=== PATIENT | male | born 1965 | race Caucasian/White ===

== ENCOUNTER 2025-03-09 10:21 | Inpatient (IN) | payer MEDICARE ==
[~2025-03-09] VITALS: Ht 180.3 cm; Wt 120.8 kg
[2025-03-09] VITALS (8 sets, daily range): BP systolic 92; BP diastolic 49; PULSE 75–121; RESP 20–56; TEMP 101.4; O2SAT 86–96
[2025-03-09] MEDS ORDERED: 0.9% SODIUM CHLORIDE 10 ML SYRINGE IVP PRN (10:30)
[2025-03-09] MEDS ORDERED: LORazepam 2 MG/ML VIAL ONE ×2 (10:35→10:39)
[2025-03-09] MEDS ORDERED: ETOMIDATE 2 MG/ML 10 ML VIAL ONE (10:37)
[2025-03-09] MEDS ORDERED: ROCURONIUM BROMIDE 10 MG/ML 5 ML VIAL ONE (10:38)
[2025-03-09] MEDS: LevETIRAcetam 2,000 MG in DEXTROSE 5%-WATER 100 ML IV ONE (11:00)
[2025-03-09 11:05] LABS: PLATELET COUNT (AUTO) 284 K/uL (150-450); RED BLOOD CELL COUNT(AUTO) 5.76 MIL/uL (4.50-5.90); RED CELL DISTRIBUTION WIDTH 15.6 % (11.5-14.5); WHITE BLOOD COUNT (AUTO) 28.9 K/uL (4.5-11.0)
[2025-03-09 11:09] LABS: CALCIUM, TOTAL 8.5 mg/dL (8.8-10.5); CREATININE 1.21 mg/dL (0.60-1.30); GLOMERULAR FILTR. RATE CALC > 60 mL/min (>60); GLUCOSE,RANDOM 288 mg/dL (70-110); SODIUM SERUM 142 mmol/L (136-145); UREA NITROGEN, BLOOD 12 mg/dL (7-18)
[2025-03-09] MEDS: SODIUM CHLORIDE 0.9% 1,950 ML IV ONE (11:10)
[2025-03-09 11:18] LABS: TROPONIN I-HIGH SENSITIVITY 54 ng/L (<76)
[2025-03-09] MEDS ORDERED: VECURONIUM BROMIDE 10 MG/VIAL ONE (11:27)
[2025-03-09 11:28] LABS: BAND NEUTROPHILS % (MANUAL) 6 % (0-5); EOSINOPHILS % (MANUAL) 1 % (1-6); LYMPHOCYTES % (MANUAL) 26 % (22-44); METAMYELOCYTES % 3 % (0-0); MONOCYTES % (MANUAL) 3 % (2-9); SEGMENTED NEUTROPHILS % 61 % (40-70)
[2025-03-09 11:33] LABS: ASPARTATE AMINOTRANSFERASE 33.0 U/L (15-37); TOTAL PROTEIN, SERUM 7.8 g/dL (6.4-8.2)
[2025-03-09] MEDS ORDERED: RIFA300C63 PO (11:35)
[2025-03-09] MEDS ORDERED: PHEN50TA13 PO ×2 (11:35)
[2025-03-09] MEDS ORDERED: PROPOFOL 1000 MG/ISO-OSM 100 ML ONE (11:37)
[2025-03-09] MEDS: PROPOFOL 1000 MG/ISO-OSM 100 ML IV PRN (11:50)
[2025-03-09] MEDS: VECURONIUM BROMIDE 10 MG/VIAL IVP ONE ×2 (11:51→15:24)
[2025-03-09 12:01] LABS: LACTIC ACID 17.4 mmol/L (0.4-2.0)
[2025-03-09] MEDS: PIPERACILLIN SODIUM/TAZOBACTAM 4.5 GM in DEXTROSE 5%-WATER 100 ML IV ONE (12:01)
[2025-03-09] MEDS: FentaNYL CIT 1000MCG/0.9% NACL 100 ML IV PRN (12:21)
[2025-03-09] MEDS: NOREPINEPHRINE 8 MG/0.9 % NACL 250 ML IV PRN (12:44)
[2025-03-09 12:52] LABS: FRACTIONATED INSPIRED OXYGEN 100.0 % (21-100.0); SOURCE, BLOOD GAS ARTERIAL; TEMPERATURE, FAHRENHEIT, BG 98.0 FAHREN (96.0-98.6)
[2025-03-09 12:55] LABS: ABG BASE EXCESS -5.7 mmol/L (-2.0-3.0); ABG CARBOXYHEMOGLOBIN 1.0 % (0.5-1.5); ABG HCO3 19.5 mmol/L (21.0-28.0); ABG METHEMOGLOBIN 0.3 % (0.0-1.5); ABG OXYGEN CONTENT 18.7 mL/dL (15.0-23.0); ABG OXYGEN SATURATION 86.2 % (94.0-98.0); ABG OXYHEMOGLOBIN 85.1 % (94.0-98.0); ABG PCO2 46 mmHg (32.0-48.0); ABG PH 7.282 (7.350-7.450); ABG TOTAL HEMOGLOBIN 15.7 G/dL (13.5-17.5)
[2025-03-09 12:57] LABS: ALLEN TEST, BLOOD GAS Positive; O2 DEVICE,BLOOD GAS VENTILATOR (ROOM AIR); PATIENT RATE, BG 22.0 min.; PEEP,BG 7 cm H2O; PO2, ARTERIAL BG 54.1 mmHg (83.0-108.0); SET RATE, BG 20.0 min.; SITE, BLOOD GAS LFT RADIAL; VT, ABG 480 ml
[2025-03-09] MEDS: IPRATROPIUM BROMIDE 0.5 MG/2.5 ML NEB SOLUTION NEB ONE (13:01)
[2025-03-09] MEDS: ALBUTEROL SULFATE 2.5 MG/0.5 ML 5 ML NEB SOLUTION NEB ONE (13:02)
[2025-03-09] MEDS ORDERED: SODIUM CHLORIDE 0.9% 500 ML IV ONE (14:36)
[2025-03-09] MEDS ORDERED: DEXTROSE 50%-WATER 25 GM/50 ML SYRINGE IVP PRN (14:45)
[2025-03-09] MEDS ORDERED: ONDANSETRON HCL 4 MG/2 ML VIAL IVP PRN (14:45)
[2025-03-09] MEDS ORDERED: SODIUM CHLORIDE 0.9% 1,000 ML IV ONE (14:45)
[2025-03-09 15:12] LABS: TROPONIN I-HIGH SENSITIVITY 377 ng/L (<76)
[2025-03-09 15:18] LABS: ABG BASE EXCESS -5.9 mmol/L (-2.0-3.0); ABG CARBOXYHEMOGLOBIN 0.0 % (0.5-1.5); ABG HCO3 18.9 mmol/L (21.0-28.0); ABG METHEMOGLOBIN 0.3 % (0.0-1.5); ABG OXYGEN CONTENT 21.6 mL/dL (15.0-23.0); ABG OXYHEMOGLOBIN 84.3 % (94.0-98.0); ABG PCO2 52 mmHg (32.0-48.0); FRACTIONATED INSPIRED OXYGEN 100.0 % (21-100.0); SOURCE, BLOOD GAS ARTERIAL; TEMPERATURE, FAHRENHEIT, BG 98.2 FAHREN (96.0-98.6)
[2025-03-09 15:24] LABS: ABG OXYGEN SATURATION 84.6 % (94.0-98.0); ABG PH 7.237 (7.350-7.450); ABG TOTAL HEMOGLOBIN 18.3 G/dL (13.5-17.5); PO2, ARTERIAL BG 53.8 mmHg (83.0-108.0); SITE, BLOOD GAS ARTERIAL LINE
[2025-03-09 15:25] LABS: ABG A-A DIFF O2 607.8 mmHg (10-20.0); O2 DEVICE,BLOOD GAS VENTILATOR (ROOM AIR); SET RATE, BG 20.0 min.; VT, ABG 480 ml
[2025-03-09 15:29] LABS: PATIENT RATE, BG 20.0 min.; SPONTANEOUS VT, BG 490 ml
[2025-03-09 15:30] LABS: PEEP,BG 10 cm H2O
[2025-03-09] MEDS: SODIUM CHLORIDE 0.9% 1,000 ML IV SCH (15:31)
[2025-03-09] MEDS: MIDAZOLAM HCL 100 MG in SODIUM CHLORIDE 0.9% 180 ML IV PRN (16:17)
[2025-03-09 17:11] LABS: ABG BASE EXCESS -5.1 mmol/L (-2.0-3.0); ABG CARBOXYHEMOGLOBIN 0.3 % (0.5-1.5); ABG HCO3 20.0 mmol/L (21.0-28.0); ABG METHEMOGLOBIN 0.9 % (0.0-1.5); ABG OXYGEN CONTENT 21.5 mL/dL (15.0-23.0); ABG OXYGEN SATURATION 88.6 % (94.0-98.0); ABG OXYHEMOGLOBIN 87.5 % (94.0-98.0); ABG PCO2 48 mmHg (32.0-48.0); ABG PH 7.276 (7.350-7.450); ABG TOTAL HEMOGLOBIN 17.5 G/dL (13.5-17.5); FRACTIONATED INSPIRED OXYGEN 100.0 % (21-100.0); O2 DEVICE,BLOOD GAS VENTILATOR (ROOM AIR); PATIENT RATE, BG 24.0 min.; PEEP,BG 12 cm H2O; PO2, ARTERIAL BG 58.6 mmHg (83.0-108.0); SET RATE, BG 24.0 min.; SITE, BLOOD GAS ARTERIAL LINE; SOURCE, BLOOD GAS ARTERIAL; SPONTANEOUS VT, BG 588 ml; TEMPERATURE, FAHRENHEIT, BG 100.3 FAHREN (96.0-98.6); VT, ABG 480 ml
[2025-03-09] MEDS: HEPARIN SODIUM,PORCINE 5,000 UNITS/ML VIAL SQ SCH (18:07)
[2025-03-09] MEDS: ACETAMINOPHEN 325 MG TABLET PO PRN (18:08)
[2025-03-09] MEDS ORDERED: VASOPRESSIN 40 UNITS in DEXTROSE 5%-WATER 98 ML IV PRN (22:00)
[2025-03-09] MEDS ORDERED: PHENYLEPHRINE 200 MG/D5%-WATER 250 ML IV PRN (22:00)
[2025-03-09 22:37] LABS: APPEARANCE,URINE HAZY (CLEAR); GLUCOSE, URINE (UA) TRACE mg/dL (NEGATIVE); LEUKOCYTE ESTERASE ,URINE TRACE (NEGATIVE); NITRATE,URINE NEGATIVE (NEGATIVE); OCCULT BLOOD,URINE MODERATE (NEGATIVE); SPECIFIC GRAVITIY, URINE 1.015 (1.003-1.030)
[2025-03-09 22:40] LABS: ALCOHOL, URINE DRUG SCREEN NEGATIVE (NEGATIVE); AMPHET/METH SCREEN,URINE NEGATIVE (NEGATIVE); BARBITURATE SCREEN, URINE NEGATIVE (NEGATIVE); CANNABINOID SCREEN,URINE NEGATIVE (NEGATIVE); COCAINE SCREEN,URINE NEGATIVE (NEGATIVE); METHADONE SCREEN, URINE NEGATIVE (NEGATIVE)
[2025-03-09 22:42] LABS: PH,URINE DRUG SCREEN 5.5 (5.0-8.0)
[2025-03-09 22:46] LABS: HYALINE CASTS, URINE 0-2 /LPF (None Seen); SQUAMOUS EPITHELIAL CELL,UR Few /LPF (None Seen)
[2025-03-09 22:47] LABS: STARCH,URINE Rare /LPF (None Seen)
[2025-03-09] MEDS: ETHYL ALCOHOL 62% ANTISEPTIC NASAL SANITIZER 0.6 ML AMPUL NASAL SCH (22:54)
[2025-03-09] MEDS: DOCUSATE SODIUM 100 MG CAPSULE PO SCH (22:54)
[2025-03-09] MEDS: CHLORHEXIDINE GLUCONATE 2% TOWELETTE [2'S/6'S] TP SCH (22:55)
[2025-03-10] VITALS (21 sets, daily range): BP systolic 110–128; BP diastolic 57–97; PULSE 87–110; RESP 22–34; TEMP 99.2–100.1; O2SAT 84–98
[2025-03-10] MEDS ORDERED: ALBUTEROL SULFATE 2.5 MG/0.5 ML NEB SOLUTION NEB SCH (01:00)
[2025-03-10] MEDS ORDERED: CISATRACURIUM BESYLATE 2 MG/ML IVP ONE (01:00)
[2025-03-10] MEDS ORDERED: IPRATROPIUM BROMIDE 0.5 MG/2.5 ML NEB SOLUTION NEB SCH (01:00)
[2025-03-10] MEDS: PIPERACILLIN SODIUM/TAZOBACTAM 4.5 GM in DEXTROSE 5%-WATER 100 ML IV SCH (02:52)
[2025-03-10] MEDS: ACETYLCYSTEINE 10% 100 MG/ML 4 ML NEB SOLUTION NEB ONE (03:38)
[2025-03-10] MEDS: ALBUTEROL SULFATE 2.5 MG/0.5 ML NEB SOLUTION NEB PRN (03:39)
[2025-03-10] MEDS: IPRATROPIUM BROMIDE 0.5 MG/2.5 ML NEB SOLUTION NEB PRN (03:39)
[2025-03-10] MEDS ORDERED: SODIUM CHLORIDE 0.9% 250 ML IV ONE (03:42)
[2025-03-10] MEDS: LevETIRAcetam 1,000 MG in DEXTROSE 5%-WATER 100 ML IV SCH (04:04)
[2025-03-10 05:56] LABS: GLUCOMETER DEV NAME(LOC) ICUN.6; GLUCOSE,POINT OF CARE 138 MG/DL (70-110)
[2025-03-10 06:51] LABS: GLUCOMETER DEV NAME(LOC) ICUN.6; GLUCOSE,POINT OF CARE 165 MG/DL (70-110)
[2025-03-10] MEDS: CISATRACURIUM BESYLATE 2 MG/ML IVP ONE (08:21)
[2025-03-10] MEDS: CISATRACURIUM BESYLATE 100 MG in DEXTROSE 5%-WATER 240 ML IV PRN (08:22)
[2025-03-10 08:25] LABS: PLATELET COUNT (AUTO) 211 K/uL (150-450); RED BLOOD CELL COUNT(AUTO) 5.19 MIL/uL (4.50-5.90); RED CELL DISTRIBUTION WIDTH 15.1 % (11.5-14.5); WHITE BLOOD COUNT (AUTO) 18.8 K/uL (4.5-11.0)
[2025-03-10 08:32] LABS: CALCIUM, TOTAL 6.6 mg/dL (8.8-10.5); CREATININE 2.27 mg/dL (0.60-1.30); GLOMERULAR FILTR. RATE CALC 30.0 mL/min (>60); GLUCOSE,RANDOM 170.0 mg/dL (70-110); SODIUM SERUM 140.0 mmol/L (136-145); UREA NITROGEN, BLOOD 22.0 mg/dL (7-18)
[2025-03-10 08:37] LABS: PHOSPHORUS 5.1 mg/dL (2.5-4.9)
[2025-03-10 09:01] LABS: BAND NEUTROPHILS % (MANUAL) 23 % (0-5); BASOPHILS % (MANUAL) 1 % (0-2); LYMPHOCYTES % (MANUAL) 17 % (22-44); MONOCYTES % (MANUAL) 2 % (2-9); SEGMENTED NEUTROPHILS % 57 % (40-70)
[2025-03-10 09:03] LABS: RBC MORPHOLOGY COMMENT ABNORMAL R
[2025-03-10] MEDS: PANTOPRAZOLE SODIUM 40 MG/VIAL IVP SCH (10:27)
[2025-03-10] MEDS: BUMETANIDE 0.25 MG/ML 4 ML VIAL IVP ONE (12:26)
[2025-03-10] MEDS: AZITHROMYCIN 500 MG/NS 250 ML IV SCH (17:27)
[2025-03-10] MEDS: LINEZOLID 600 MG/ISO-OSM 300 ML IV SCH (17:27)
[2025-03-10 18:59] LABS: HEPATITIS B CORE IGM Negative (Negative); HEPATITIS C AB (EIA) Non Reactive (Non Reactive)
[2025-03-10] MEDS: ACETYLCYSTEINE 10% 100 MG/ML 4 ML NEB SOLUTION NEB SCH (19:11)
[2025-03-10 21:11] LABS: GLUCOMETER DEV NAME(LOC) ICUN.6; GLUCOSE,POINT OF CARE 162 MG/DL (70-110)
[2025-03-10] MEDS: DOCUSATE SODIUM 100 MG/10 ML LIQUID UDCUP NG SCH (23:12)
[2025-03-10 23:45] LABS: GLUCOMETER DEV NAME(LOC) ICUN.6; GLUCOSE,POINT OF CARE 146 MG/DL (70-110)
[2025-03-11] VITALS (24 sets, daily range): BP systolic 105–138; BP diastolic 53–79; PULSE 88–108; RESP 24–33; TEMP 98.2–99.6; O2SAT 88–98
[2025-03-11] MEDS: HYDROCORTISONE SOD SUCC 100 MG/2 ML VIAL IVP SCH (00:10)
[2025-03-11 05:30] LABS: PLATELET COUNT (AUTO) 176 K/uL (150-450); RED BLOOD CELL COUNT(AUTO) 4.89 MIL/uL (4.50-5.90); RED CELL DISTRIBUTION WIDTH 15.3 % (11.5-14.5); WHITE BLOOD COUNT (AUTO) 18.3 K/uL (4.5-11.0)
[2025-03-11 05:38] LABS: CALCIUM, TOTAL 6.8 mg/dL (8.8-10.5); CREATININE 2.85 mg/dL (0.60-1.30); GLOMERULAR FILTR. RATE CALC 23.0 mL/min (>60); GLUCOSE,RANDOM 165.0 mg/dL (70-110); SODIUM SERUM 138.0 mmol/L (136-145); UREA NITROGEN, BLOOD 31.0 mg/dL (7-18)
[2025-03-11 05:39] LABS: PHOSPHORUS 5.6 mg/dL (2.5-4.9)
[2025-03-11 05:51] LABS: GLUCOMETER DEV NAME(LOC) ICU.S7; GLUCOSE,POINT OF CARE 178 MG/DL (70-110)
[2025-03-11 06:53] LABS: BAND NEUTROPHILS % (MANUAL) 20 % (0-5); LYMPHOCYTES % (MANUAL) 14 % (22-44); MONOCYTES % (MANUAL) 4 % (2-9); SEGMENTED NEUTROPHILS % 62 % (40-70)
[2025-03-11] MEDS ORDERED: SODIUM CHLORIDE 0.9% 250 ML IV ONE (07:45)
[2025-03-11 11:56] LABS: GLUCOMETER DEV NAME(LOC) ICU.S7; GLUCOSE,POINT OF CARE 133 MG/DL (70-110)
[2025-03-11 12:28] LABS: ABG BASE EXCESS -7.0 mmol/L (-2.0-3.0); ABG CARBOXYHEMOGLOBIN 0.6 % (0.5-1.5); ABG HCO3 18.7 mmol/L (21.0-28.0); ABG METHEMOGLOBIN 0.1 % (0.0-1.5); ABG OXYGEN CONTENT 19.2 mL/dL (15.0-23.0); ABG OXYGEN SATURATION 98.4 % (94.0-98.0); ABG OXYHEMOGLOBIN 97.7 % (94.0-98.0); ABG PCO2 52 mmHg (32.0-48.0); ABG TOTAL HEMOGLOBIN 13.8 G/dL (13.5-17.5); FRACTIONATED INSPIRED OXYGEN 100.0 % (21-100.0); PO2, ARTERIAL BG 139.6 mmHg (83.0-108.0); SOURCE, BLOOD GAS ARTERIAL; TEMPERATURE, FAHRENHEIT, BG 99.6 FAHREN (96.0-98.6)
[2025-03-11 12:29] LABS: ABG A-A DIFF O2 520.2 mmHg (10-20.0); ABG PH 7.222 (7.350-7.450); O2 DEVICE,BLOOD GAS VENTILATOR (ROOM AIR); PATIENT RATE, BG 30.0 min.; PEEP,BG 12 cm H2O; SET RATE, BG 24.0 min.; SITE, BLOOD GAS ARTERIAL LINE; VT, ABG 480 ml
[2025-03-11 12:30] LABS: SPONTANEOUS VT, BG 512 ml
[2025-03-11 17:12] LABS: INFLUENZA A-RTPCR,COMBO NEGATIVE (NEGATIVE); INFLUENZA B-RTPCR,COMBO NEGATIVE (NEGATIVE); RESPIRATORY SYNCYTIAL VRS-PCR NEGATIVE (NEGATIVE); SARS COVID19 RTPCR, COMBO NEGATIVE (NEGATIVE)
[2025-03-11 18:51] LABS: GLUCOMETER DEV NAME(LOC) ICUN.6; GLUCOSE,POINT OF CARE 139 MG/DL (70-110)
[2025-03-11 18:57] LABS: ABG BASE EXCESS -6.2 mmol/L (-2.0-3.0); ABG CARBOXYHEMOGLOBIN 0.5 % (0.5-1.5); ABG HCO3 19.6 mmol/L (21.0-28.0); ABG METHEMOGLOBIN 0.1 % (0.0-1.5); ABG OXYGEN CONTENT 17.2 mL/dL (15.0-23.0); ABG OXYGEN SATURATION 91.8 % (94.0-98.0); ABG OXYHEMOGLOBIN 91.2 % (94.0-98.0); ABG PCO2 44 mmHg (32.0-48.0); ABG PH 7.290 (7.350-7.450); ABG TOTAL HEMOGLOBIN 13.4 G/dL (13.5-17.5); FRACTIONATED INSPIRED OXYGEN 100.0 % (21-100.0); PO2, ARTERIAL BG 64.7 mmHg (83.0-108.0); SOURCE, BLOOD GAS ARTERIAL; TEMPERATURE, FAHRENHEIT, BG 99.6 FAHREN (96.0-98.6)
[2025-03-11 18:58] LABS: O2 DEVICE,BLOOD GAS VENTILATOR (ROOM AIR); SET RATE, BG 28.0 min.; SITE, BLOOD GAS ARTERIAL LINE; VT, ABG 480 ml
[2025-03-11 18:59] LABS: PATIENT RATE, BG 28.0 min.; PEEP,BG 12 cm H2O; SPONTANEOUS VT, BG 447 ml
[2025-03-11] MEDS: PIPERACILLIN/TAZO 3.375 GM/D5W 50 ML IV SCH (21:15)
[2025-03-12] VITALS (25 sets, daily range): BP systolic 90–114; BP diastolic 44–75; PULSE 76–95; RESP 28–31; TEMP 98.6–99.6; O2SAT 95–100
[2025-03-12] MEDS: INSULIN LISPRO 100 UNITS/ML SQ PRN (05:25)
[2025-03-12 06:06] LABS: ASPARTATE AMINOTRANSFERASE 75.0 U/L (15-37); CALCIUM, TOTAL 7.0 mg/dL (8.8-10.5); CREATININE 2.97 mg/dL (0.60-1.30); GLOMERULAR FILTR. RATE CALC 22.0 mL/min (>60); GLUCOSE,RANDOM 148.0 mg/dL (70-110); PLATELET COUNT (AUTO) 163 K/uL (150-450); RED BLOOD CELL COUNT(AUTO) 4.21 MIL/uL (4.50-5.90); RED CELL DISTRIBUTION WIDTH 15.4 % (11.5-14.5); SODIUM SERUM 142.0 mmol/L (136-145); TOTAL PROTEIN, SERUM 5.4 g/dL (6.4-8.2); UREA NITROGEN, BLOOD 41.0 mg/dL (7-18); WHITE BLOOD COUNT (AUTO) 15.4 K/uL (4.5-11.0)
[2025-03-12 08:06] LABS: GLUCOMETER DEV NAME(LOC) ICU.S7; GLUCOSE,POINT OF CARE 134 MG/DL (70-110)
[2025-03-12 08:06] LABS: GLUCOMETER DEV NAME(LOC) ICU.S7; GLUCOSE,POINT OF CARE 160 MG/DL (70-110)
[2025-03-12 12:07] LABS: LEGIONELLA PNEUMO AG URINE Negative (Negative)
[2025-03-12 13:07] LABS: S PNEUMO SOURCE Urine; STREP PNEUMONIAE AG URINE Positive (Negative)
[2025-03-12 13:11] LABS: MTB PCR w/Rif. Resistance-SPUT NOT DETECTED (Not Detectd)
[2025-03-12] MEDS ORDERED: PHEN100C9 PO (13:33)
[2025-03-12] MEDS: CefTRIAXone SODIUM 2 GM in DEXTROSE 5%-WATER 50 ML IV SCH (15:04)
[2025-03-12 17:40] LABS: GLUCOMETER DEV NAME(LOC) ICUN.6; GLUCOSE,POINT OF CARE 148 MG/DL (70-110)
[2025-03-12 17:40] LABS: GLUCOMETER DEV NAME(LOC) ICU.S7; GLUCOSE,POINT OF CARE 112 MG/DL (70-110)
[2025-03-12 18:47] LABS: ABG BASE EXCESS -4.4 mmol/L (-2.0-3.0); ABG CARBOXYHEMOGLOBIN 0.3 % (0.5-1.5); ABG HCO3 21.0 mmol/L (21.0-28.0); ABG METHEMOGLOBIN 0.9 % (0.0-1.5); ABG OXYGEN CONTENT 16.2 mL/dL (15.0-23.0); ABG OXYGEN SATURATION 93.2 % (94.0-98.0); ABG OXYHEMOGLOBIN 92.1 % (94.0-98.0); ABG PCO2 41 mmHg (32.0-48.0); ABG PH 7.340 (7.350-7.450); ABG TOTAL HEMOGLOBIN 12.5 G/dL (13.5-17.5); FRACTIONATED INSPIRED OXYGEN 100.0 % (21-100.0); PO2, ARTERIAL BG 67.9 mmHg (83.0-108.0); SOURCE, BLOOD GAS ARTERIAL; TEMPERATURE, FAHRENHEIT, BG 98.6 FAHREN (96.0-98.6)
[2025-03-12 18:49] LABS: ABG A-A DIFF O2 604.6 mmHg (10-20.0); O2 DEVICE,BLOOD GAS VENTILATOR (ROOM AIR); SET RATE, BG 28.0 min.; SITE, BLOOD GAS ARTERIAL LINE; VT, ABG 480 ml
[2025-03-12 18:50] LABS: PATIENT RATE, BG 28.0 min.; PEEP,BG 12 cm H2O; SPONTANEOUS VT, BG 487 ml
[2025-03-13] VITALS (25 sets, daily range): BP systolic 116–170; BP diastolic 54–72; PULSE 89–109; RESP 28; TEMP 98.4–100.1; O2SAT 90–100
[2025-03-13 03:36] LABS: GLUCOMETER DEV NAME(LOC) ICU.S7; GLUCOSE,POINT OF CARE 115 MG/DL (70-110)
[2025-03-13 05:20] LABS: GLUCOMETER DEV NAME(LOC) ICUN.6; GLUCOSE,POINT OF CARE 138 MG/DL (70-110)
[2025-03-13 06:06] LABS: PLATELET COUNT (AUTO) 180 K/uL (150-450); RED BLOOD CELL COUNT(AUTO) 4.24 MIL/uL (4.50-5.90); RED CELL DISTRIBUTION WIDTH 15.3 % (11.5-14.5); WHITE BLOOD COUNT (AUTO) 15.7 K/uL (4.5-11.0)
[2025-03-13 06:14] LABS: CALCIUM, TOTAL 7.6 mg/dL (8.8-10.5); CREATININE 2.67 mg/dL (0.60-1.30); GLOMERULAR FILTR. RATE CALC 25.0 mL/min (>60); GLUCOSE,RANDOM 149.0 mg/dL (70-110); SODIUM SERUM 143.0 mmol/L (136-145); UREA NITROGEN, BLOOD 51.0 mg/dL (7-18)
[2025-03-13] MEDS ORDERED: SODIUM CHLORIDE 0.9% 250 ML IV ONE ×2 (06:33→15:21)
[2025-03-13 13:11] LABS: MTB PCR w/Rif. Resistance-SPUT NOT DETECTED (Not Detectd)
[2025-03-13 18:01] LABS: GLUCOMETER DEV NAME(LOC) ICUN.6; GLUCOSE,POINT OF CARE 134 MG/DL (70-110)
[2025-03-13 20:45] LABS: GLUCOMETER DEV NAME(LOC) ICU.S7; GLUCOSE,POINT OF CARE 135 MG/DL (70-110)
[2025-03-13 23:02] LABS: ABG BASE EXCESS -7.3 mmol/L (-2.0-3.0); ABG CARBOXYHEMOGLOBIN 0.2 % (0.5-1.5); ABG HCO3 18.2 mmol/L (21.0-28.0); ABG METHEMOGLOBIN 0.1 % (0.0-1.5); ABG OXYGEN CONTENT 16.2 mL/dL (15.0-23.0); ABG OXYGEN SATURATION 93.5 % (94.0-98.0); ABG OXYHEMOGLOBIN 93.2 % (94.0-98.0); ABG PCO2 57 mmHg (32.0-48.0); ABG PH 7.185 (7.350-7.450); ABG TOTAL HEMOGLOBIN 12.3 G/dL (13.5-17.5); FRACTIONATED INSPIRED OXYGEN 100.0 % (21-100.0); PO2, ARTERIAL BG 85.7 mmHg (83.0-108.0); SITE, BLOOD GAS RT FEMORAL; TEMPERATURE, FAHRENHEIT, BG 100.4 FAHREN (96.0-98.6)
[2025-03-13 23:03] LABS: ABG A-A DIFF O2 567.6 mmHg (10-20.0); O2 DEVICE,BLOOD GAS VENTILATOR (ROOM AIR); SOURCE, BLOOD GAS ARTERIAL LINE
[2025-03-13 23:04] LABS: PATIENT RATE, BG 28.0 min.; PEEP,BG 12 cm H2O; SET RATE, BG 28.0 min.; SPONTANEOUS VT, BG 483 ml; VT, ABG 480 ml
[2025-03-14] VITALS (22 sets, daily range): BP systolic 114–146; BP diastolic 55–108; PULSE 86–118; RESP 28; TEMP 99–100.6; O2SAT 90–98
[2025-03-14 00:25] LABS: GLUCOMETER DEV NAME(LOC) ICUN.6; GLUCOSE,POINT OF CARE 132 MG/DL (70-110)
[2025-03-14] MEDS: SODIUM BICARBONATE [ADULT] 8.4% 50 MEQ/50 ML SYRINGE IVP ONE (01:48)
[2025-03-14] MEDS ORDERED: SODIUM CHLORIDE 0.9% 500 ML IV ONE (05:03)
[2025-03-14] MEDS ORDERED: SODIUM CHLORIDE 0.9% 250 ML IV ONE (05:03)
[2025-03-14 06:27] LABS: CALCIUM, TOTAL 7.7 mg/dL (8.8-10.5); CREATININE 2.3 mg/dL (0.60-1.30); GLOMERULAR FILTR. RATE CALC 29.0 mL/min (>60); GLUCOSE,RANDOM 132.0 mg/dL (70-110); SODIUM SERUM 146.0 mmol/L (136-145); UREA NITROGEN, BLOOD 53.0 mg/dL (7-18)
[2025-03-14 06:30] LABS: PLATELET COUNT (AUTO) 177 K/uL (150-450); RED BLOOD CELL COUNT(AUTO) 4.21 MIL/uL (4.50-5.90); RED CELL DISTRIBUTION WIDTH 15.3 % (11.5-14.5); WHITE BLOOD COUNT (AUTO) 14.3 K/uL (4.5-11.0)
[2025-03-14 06:30] LABS: GLUCOMETER DEV NAME(LOC) ICUN.6; GLUCOSE,POINT OF CARE 140 MG/DL (70-110)
[2025-03-14 06:31] LABS: PHOSPHORUS 4.4 mg/dL (2.5-4.9)
[2025-03-14] MEDS: METOCLOPRAMIDE HCL 5 MG/ML 2 ML VIAL IVP SCH (10:36)
[2025-03-14 12:10] LABS: ABG BASE EXCESS -7.7 mmol/L (-2.0-3.0); ABG CARBOXYHEMOGLOBIN 0.5 % (0.5-1.5); ABG HCO3 18.0 mmol/L (21.0-28.0); ABG METHEMOGLOBIN 0.2 % (0.0-1.5); ABG OXYGEN CONTENT 17.8 mL/dL (15.0-23.0); ABG OXYGEN SATURATION 93.2 % (94.0-98.0); ABG OXYHEMOGLOBIN 92.5 % (94.0-98.0); ABG PCO2 53 mmHg (32.0-48.0); ABG TOTAL HEMOGLOBIN 13.7 G/dL (13.5-17.5); FRACTIONATED INSPIRED OXYGEN 100.0 % (21-100.0); PO2, ARTERIAL BG 75.0 mmHg (83.0-108.0); SOURCE, BLOOD GAS ARTERIAL; TEMPERATURE, FAHRENHEIT, BG 99.1 FAHREN (96.0-98.6)
[2025-03-14 12:11] LABS: ABG A-A DIFF O2 584.1 mmHg (10-20.0); ABG PH 7.201 (7.350-7.450); O2 DEVICE,BLOOD GAS VENTILATOR (ROOM AIR); SITE, BLOOD GAS ARTERIAL LINE
[2025-03-14 12:12] LABS: PATIENT RATE, BG 28.0 min.; PEEP,BG 12 cm H2O; SET RATE, BG 28.0 min.; VT, ABG 480 ml
[2025-03-14 17:56] LABS: GLUCOMETER DEV NAME(LOC) ICU.S7; GLUCOSE,POINT OF CARE 155 MG/DL (70-110)
[2025-03-15] VITALS (23 sets, daily range): BP systolic 114–135; BP diastolic 52–75; PULSE 85–114; RESP 28; TEMP 97–98.6; O2SAT 92–100
[2025-03-15 00:06] LABS: GLUCOMETER DEV NAME(LOC) ICUN.6; GLUCOSE,POINT OF CARE 135 MG/DL (70-110)
[2025-03-15 05:29] LABS: PLATELET COUNT (AUTO) 193 K/uL (150-450); RED BLOOD CELL COUNT(AUTO) 4.15 MIL/uL (4.50-5.90); RED CELL DISTRIBUTION WIDTH 15.5 % (11.5-14.5); WHITE BLOOD COUNT (AUTO) 10.1 K/uL (4.5-11.0)
[2025-03-15 05:44] LABS: CALCIUM, TOTAL 7.7 mg/dL (8.8-10.5); CREATININE 4.37 mg/dL (0.60-1.30); GLOMERULAR FILTR. RATE CALC 14.0 mL/min (>60); GLUCOSE,RANDOM 150.0 mg/dL (70-110); SODIUM SERUM 144.0 mmol/L (136-145); UREA NITROGEN, BLOOD 85.0 mg/dL (7-18)
[2025-03-15 05:49] LABS: PHOSPHORUS 7.8 mg/dL (2.5-4.9)
[2025-03-15 07:25] LABS: GLUCOMETER DEV NAME(LOC) ICUN.6; GLUCOSE,POINT OF CARE 127 MG/DL (70-110)
[2025-03-15] MEDS: PIPERACILLIN/TAZO 3.375 GM/D5W 50 ML IV SCH (14:28)
[2025-03-15 17:52] LABS: APPEARANCE,URINE TURBID (CLEAR); GLUCOSE, URINE (UA) NEGATIVE (NEGATIVE); LEUKOCYTE ESTERASE ,URINE TRACE (NEGATIVE); NITRATE,URINE NEGATIVE (NEGATIVE); OCCULT BLOOD,URINE LARGE (NEGATIVE); SPECIFIC GRAVITIY, URINE 1.013 (1.003-1.030)
[2025-03-15 18:06] LABS: AMORPHOUS SEDIMENT,UR Many /LPF (None Seen); SQUAMOUS EPITHELIAL CELL,UR Few /LPF (None Seen)
[2025-03-15 18:20] LABS: GLUCOMETER DEV NAME(LOC) ICUN.6; GLUCOSE,POINT OF CARE 131 MG/DL (70-110)
[2025-03-15 18:20] LABS: GLUCOMETER DEV NAME(LOC) ICU.S7; GLUCOSE,POINT OF CARE 115 MG/DL (70-110)
[2025-03-15] MEDS ORDERED: SODIUM CHLORIDE 0.9% 250 ML IV ONE (18:38)
[2025-03-16] VITALS (25 sets, daily range): BP systolic 108–150; BP diastolic 45–111; PULSE 88–104; RESP 28–29; TEMP 97.7–98.8; O2SAT 87–98
[2025-03-16 04:05] LABS: ABG BASE EXCESS -10.0 mmol/L (-2.0-3.0); ABG CARBOXYHEMOGLOBIN 0.4 % (0.5-1.5); ABG HCO3 17.1 mmol/L (21.0-28.0); ABG METHEMOGLOBIN 0.1 % (0.0-1.5); ABG OXYGEN CONTENT 16.0 mL/dL (15.0-23.0); ABG OXYGEN SATURATION 93.9 % (94.0-98.0); ABG OXYHEMOGLOBIN 93.4 % (94.0-98.0); ABG PCO2 37 mmHg (32.0-48.0); ABG PH 7.279 (7.350-7.450); ABG TOTAL HEMOGLOBIN 12.1 G/dL (13.5-17.5); FRACTIONATED INSPIRED OXYGEN 85.0 % (21-100.0); PO2, ARTERIAL BG 77.5 mmHg (83.0-108.0); SOURCE, BLOOD GAS ARTERIAL; TEMPERATURE, FAHRENHEIT, BG 98.7 FAHREN (96.0-98.6)
[2025-03-16] MEDS ORDERED: SODIUM CHLORIDE 0.9% 250 ML IV ONE (04:35)
[2025-03-16 04:37] LABS: SITE, BLOOD GAS ARTERIAL LINE
[2025-03-16 04:38] LABS: ABG A-A DIFF O2 490.3 mmHg (10-20.0); O2 DEVICE,BLOOD GAS VENTILATOR (ROOM AIR); PATIENT RATE, BG 28.0 min.; PEEP,BG 12 cm H2O; SET RATE, BG 28.0 min.; SPONTANEOUS VT, BG 478 ml; VT, ABG 480 ml
[2025-03-16] MEDS: DEXTRAN 70 0.1%/HYPROMELL 0.3% 0.9 ML OPHTHALMIC SOLUTION [PF] OU SCH (05:11)
[2025-03-16 05:27] LABS: PLATELET COUNT (AUTO) 210 K/uL (150-450); RED BLOOD CELL COUNT(AUTO) 3.81 MIL/uL (4.50-5.90); RED CELL DISTRIBUTION WIDTH 15.4 % (11.5-14.5); WHITE BLOOD COUNT (AUTO) 7.8 K/uL (4.5-11.0)
[2025-03-16 05:41] LABS: PHOSPHORUS 7.4 mg/dL (2.5-4.9)
[2025-03-16 05:44] LABS: ASPARTATE AMINOTRANSFERASE 32.0 U/L (15-37); CALCIUM, TOTAL 7.6 mg/dL (8.8-10.5); CREATININE 4.55 mg/dL (0.60-1.30); GLOMERULAR FILTR. RATE CALC 13.0 mL/min (>60); GLUCOSE,RANDOM 139.0 mg/dL (70-110); SODIUM SERUM 145.0 mmol/L (136-145); TOTAL PROTEIN, SERUM 5.8 g/dL (6.4-8.2)
[2025-03-16 05:54] LABS: UREA NITROGEN, BLOOD 101.0 mg/dL (7-18)
[2025-03-16 06:26] LABS: GLUCOMETER DEV NAME(LOC) ICU.S7; GLUCOSE,POINT OF CARE 110 MG/DL (70-110)
[2025-03-16] MEDS ORDERED: SODIUM CHLORIDE 0.9% 500 ML IV ONE (09:15)
[2025-03-16] MEDS: SODIUM CHLORIDE 0.9% 1,000 ML IV ONE (09:19)
[2025-03-16 16:16] LABS: GLUCOMETER DEV NAME(LOC) ICUN.6; GLUCOSE,POINT OF CARE 120 MG/DL (70-110)
[2025-03-16 16:20] LABS: GLUCOMETER DEV NAME(LOC) ICU.S7; GLUCOSE,POINT OF CARE 122 MG/DL (70-110)
[2025-03-16 17:33] LABS: CALCIUM, TOTAL 8.0 mg/dL (8.8-10.5); CREATININE 3.86 mg/dL (0.60-1.30); GLOMERULAR FILTR. RATE CALC 16.0 mL/min (>60); GLUCOSE,RANDOM 118.0 mg/dL (70-110); SODIUM SERUM 150.0 mmol/L (136-145); UREA NITROGEN, BLOOD 96.0 mg/dL (7-18)
[2025-03-16 18:41] LABS: GLUCOMETER DEV NAME(LOC) ICU.S7; GLUCOSE,POINT OF CARE 114 MG/DL (70-110)
[2025-03-16] MEDS: DEXTROSE 5%-WATER 1,000 ML IV ONE (19:30)
[2025-03-17] VITALS (27 sets, daily range): BP systolic 127–151; BP diastolic 55–81; PULSE 82–106; RESP 28; TEMP 98.4–99.5; O2SAT 82–98
[2025-03-17 03:31] LABS: ABG BASE EXCESS -7.5 mmol/L (-2.0-3.0); ABG CARBOXYHEMOGLOBIN 0.3 % (0.5-1.5); ABG HCO3 18.8 mmol/L (21.0-28.0); ABG METHEMOGLOBIN 0.3 % (0.0-1.5); ABG OXYGEN CONTENT 16.0 mL/dL (15.0-23.0); ABG OXYGEN SATURATION 92.8 % (94.0-98.0); ABG OXYHEMOGLOBIN 92.2 % (94.0-98.0); ABG PCO2 37 mmHg (32.0-48.0); ABG PH 7.317 (7.350-7.450); ABG TOTAL HEMOGLOBIN 12.3 G/dL (13.5-17.5); FRACTIONATED INSPIRED OXYGEN 100.0 % (21-100.0); PO2, ARTERIAL BG 69.6 mmHg (83.0-108.0); TEMPERATURE, FAHRENHEIT, BG 98.3 FAHREN (96.0-98.6)
[2025-03-17 04:14] LABS: SOURCE, BLOOD GAS ARTERIAL LINE
[2025-03-17 04:15] LABS: O2 DEVICE,BLOOD GAS VENTILATOR (ROOM AIR); PATIENT RATE, BG 28.0 min.; SET RATE, BG 28.0 min.; SITE, BLOOD GAS RT FEMORAL; VT, ABG 480 ml
[2025-03-17 04:16] LABS: PEEP,BG 10 cm H2O; SPONTANEOUS VT, BG 493 ml
[2025-03-17 05:11] LABS: GLUCOMETER DEV NAME(LOC) ICUN.6; GLUCOSE,POINT OF CARE 145 MG/DL (70-110)
[2025-03-17 05:45] LABS: GLUCOMETER DEV NAME(LOC) ICU.S7; GLUCOSE,POINT OF CARE 117 MG/DL (70-110)
[2025-03-17 06:12] LABS: PHOSPHORUS 5.7 mg/dL (2.5-4.9)
[2025-03-17 06:16] LABS: CALCIUM, TOTAL 8.3 mg/dL (8.8-10.5); CREATININE 3.17 mg/dL (0.60-1.30); GLOMERULAR FILTR. RATE CALC 20.0 mL/min (>60); GLUCOSE,RANDOM 139.0 mg/dL (70-110); SODIUM SERUM 149.0 mmol/L (136-145); UREA NITROGEN, BLOOD 91.0 mg/dL (7-18)
[2025-03-17 07:03] LABS: PLATELET COUNT (AUTO) 272 K/uL (150-450); RED BLOOD CELL COUNT(AUTO) 4.08 MIL/uL (4.50-5.90); RED CELL DISTRIBUTION WIDTH 15.5 % (11.5-14.5); WHITE BLOOD COUNT (AUTO) 9.2 K/uL (4.5-11.0)
[2025-03-17] MEDS: DEXTROSE 5%-WATER 1,000 ML IV SCH ×2 (10:26→17:15)
[2025-03-17] MEDS: LINEZOLID 600 MG/ISO-OSM 300 ML IV SCH (16:28)
[2025-03-17] MEDS ORDERED: SODIUM CHLORIDE 0.9% 500 ML IV ONE (16:41)
[2025-03-17 16:50] LABS: CALCIUM, TOTAL 8.0 mg/dL (8.8-10.5); CREATININE 2.91 mg/dL (0.60-1.30); GLOMERULAR FILTR. RATE CALC 22.0 mL/min (>60); GLUCOSE,RANDOM 135.0 mg/dL (70-110); SODIUM SERUM 150.0 mmol/L (136-145); UREA NITROGEN, BLOOD 81.0 mg/dL (7-18)
[2025-03-17 19:46] LABS: GLUCOMETER DEV NAME(LOC) ICU.S7; GLUCOSE,POINT OF CARE 167 MG/DL (70-110)
[2025-03-17 19:46] LABS: GLUCOMETER DEV NAME(LOC) ICU.S7; GLUCOSE,POINT OF CARE 141 MG/DL (70-110)
[2025-03-18] VITALS (23 sets, daily range): BP systolic 130–189; BP diastolic 56–77; PULSE 66–101; RESP 28–30; TEMP 98.5–100.5; O2SAT 88–98
[2025-03-18] MEDS ORDERED: SODIUM CHLORIDE 0.9% 500 ML IV ONE (00:42)
[2025-03-18 01:00] LABS: GLUCOMETER DEV NAME(LOC) ICU.S7; GLUCOSE,POINT OF CARE 118 MG/DL (70-110)
[2025-03-18 03:58] LABS: ABG BASE EXCESS -7.9 mmol/L (-2.0-3.0); ABG CARBOXYHEMOGLOBIN 0.3 % (0.5-1.5); ABG HCO3 18.7 mmol/L (21.0-28.0); ABG METHEMOGLOBIN 0.1 % (0.0-1.5); ABG OXYGEN CONTENT 13.1 mL/dL (15.0-23.0); ABG OXYGEN SATURATION 92.5 % (94.0-98.0); ABG OXYHEMOGLOBIN 92.1 % (94.0-98.0); ABG PCO2 34 mmHg (32.0-48.0); ABG PH 7.341 (7.350-7.450); ABG TOTAL HEMOGLOBIN 10.1 G/dL (13.5-17.5); FRACTIONATED INSPIRED OXYGEN 100.0 % (21-100.0); PO2, ARTERIAL BG 72.1 mmHg (83.0-108.0); TEMPERATURE, FAHRENHEIT, BG 100.5 FAHREN (96.0-98.6)
[2025-03-18 04:00] LABS: O2 DEVICE,BLOOD GAS VENTILATOR (ROOM AIR); SITE, BLOOD GAS RT FEMORAL; SOURCE, BLOOD GAS ARTERIAL LINE
[2025-03-18 04:01] LABS: PATIENT RATE, BG 28.0 min.; PEEP,BG 10 cm H2O; SET RATE, BG 28.0 min.; SPONTANEOUS VT, BG 457 ml; VT, ABG 480 ml
[2025-03-18 04:03] LABS: ABG A-A DIFF O2 604.2 mmHg (10-20.0)
[2025-03-18 06:08] LABS: CALCIUM, TOTAL 7.9 mg/dL (8.8-10.5); CREATININE 2.59 mg/dL (0.60-1.30); GLOMERULAR FILTR. RATE CALC 26.0 mL/min (>60); GLUCOSE,RANDOM 195.0 mg/dL (70-110); SODIUM SERUM 146.0 mmol/L (136-145); UREA NITROGEN, BLOOD 72.0 mg/dL (7-18)
[2025-03-18 06:16] LABS: PLATELET COUNT (AUTO) 310 K/uL (150-450); RED BLOOD CELL COUNT(AUTO) 3.98 MIL/uL (4.50-5.90); RED CELL DISTRIBUTION WIDTH 15.4 % (11.5-14.5); WHITE BLOOD COUNT (AUTO) 11.0 K/uL (4.5-11.0)
[2025-03-18 06:20] LABS: GLUCOMETER DEV NAME(LOC) ICUN.6; GLUCOSE,POINT OF CARE 185 MG/DL (70-110)
[2025-03-18 07:38] LABS: PHOSPHORUS 4.2 mg/dL (2.5-4.9)
[2025-03-18 10:11] LABS: ABG BASE EXCESS -6.4 mmol/L (-2.0-3.0); ABG CARBOXYHEMOGLOBIN 0.3 % (0.5-1.5); ABG HCO3 19.4 mmol/L (21.0-28.0); ABG METHEMOGLOBIN 0.1 % (0.0-1.5); ABG OXYGEN CONTENT 15.0 mL/dL (15.0-23.0); ABG OXYGEN SATURATION 95.1 % (94.0-98.0); ABG OXYHEMOGLOBIN 94.7 % (94.0-98.0); ABG PCO2 46 mmHg (32.0-48.0); ABG PH 7.268 (7.350-7.450); ABG TOTAL HEMOGLOBIN 11.2 G/dL (13.5-17.5); FRACTIONATED INSPIRED OXYGEN 80.0 % (21-100.0); PO2, ARTERIAL BG 87.4 mmHg (83.0-108.0); SOURCE, BLOOD GAS ARTERIAL; TEMPERATURE, FAHRENHEIT, BG 100.5 FAHREN (96.0-98.6)
[2025-03-18 10:12] LABS: ABG A-A DIFF O2 432.4 mmHg (10-20.0); O2 DEVICE,BLOOD GAS VENTILATOR (ROOM AIR); PATIENT RATE, BG 28.0 min.; PEEP,BG 10 cm H2O; SET RATE, BG 28.0 min.; SITE, BLOOD GAS ARTERIAL LINE; SPONTANEOUS VT, BG 496 ml; VT, ABG 480 ml
[2025-03-18] MEDS ORDERED: DEXTROSE 50%-WATER 25 GM in WATER FOR INJECTION,STERILE 950 ML IV SCH (12:50)
[2025-03-18] MEDS: DEXTROSE 50%-WATER 25 GM in WATER FOR INJECTION,STERILE 950 ML IV SCH (13:10)
[2025-03-18 16:56] LABS: GLUCOMETER DEV NAME(LOC) ICUN.6; GLUCOSE,POINT OF CARE 124 MG/DL (70-110)
[2025-03-18 16:56] LABS: GLUCOMETER DEV NAME(LOC) ICU.S7; GLUCOSE,POINT OF CARE 131 MG/DL (70-110)
[2025-03-18 18:40] LABS: GLUCOMETER DEV NAME(LOC) ICU.S7; GLUCOSE,POINT OF CARE 119 MG/DL (70-110)
[2025-03-18 21:26] LABS: ABG BASE EXCESS -4.6 mmol/L (-2.0-3.0); ABG CARBOXYHEMOGLOBIN 0.3 % (0.5-1.5); ABG HCO3 20.6 mmol/L (21.0-28.0); ABG METHEMOGLOBIN 0.2 % (0.0-1.5); ABG OXYGEN CONTENT 16.0 mL/dL (15.0-23.0); ABG OXYGEN SATURATION 86.0 % (94.0-98.0); ABG OXYHEMOGLOBIN 85.6 % (94.0-98.0); ABG PCO2 42 mmHg (32.0-48.0); ABG PH 7.321 (7.350-7.450); ABG TOTAL HEMOGLOBIN 13.3 G/dL (13.5-17.5); FRACTIONATED INSPIRED OXYGEN 80.0 % (21-100.0); SOURCE, BLOOD GAS ARTERIAL; TEMPERATURE, FAHRENHEIT, BG 98.4 FAHREN (96.0-98.6)
[2025-03-18 21:27] LABS: ABG A-A DIFF O2 473.6 mmHg (10-20.0); O2 DEVICE,BLOOD GAS VENT (ROOM AIR); PEEP,BG 10 cm H2O; PO2, ARTERIAL BG 52.4 mmHg (83.0-108.0); SET RATE, BG 30.0 min.; SITE, BLOOD GAS ARTERIAL LINE; VT, ABG 480 ml
[2025-03-19] VITALS (34 sets, daily range): BP systolic 132–186; BP diastolic 54–77; PULSE 75–115; RESP 30–31; TEMP 98.3–99.1; O2SAT 89–100
[2025-03-19 01:21] LABS: GLUCOMETER DEV NAME(LOC) ICU.S7; GLUCOSE,POINT OF CARE 82 MG/DL (70-110)
[2025-03-19 05:52] LABS: PLATELET COUNT (AUTO) 341 K/uL (150-450); RED BLOOD CELL COUNT(AUTO) 4.37 MIL/uL (4.50-5.90); RED CELL DISTRIBUTION WIDTH 14.9 % (11.5-14.5); WHITE BLOOD COUNT (AUTO) 13.2 K/uL (4.5-11.0)
[2025-03-19 05:58] LABS: PHOSPHORUS 4.8 mg/dL (2.5-4.9)
[2025-03-19 06:31] LABS: GLUCOMETER DEV NAME(LOC) ICUN.6; GLUCOSE,POINT OF CARE 144 MG/DL (70-110)
[2025-03-19 06:34] LABS: ASPARTATE AMINOTRANSFERASE 27.0 U/L (15-37); CALCIUM, TOTAL 7.9 mg/dL (8.8-10.5); CREATININE 1.95 mg/dL (0.60-1.30); GLOMERULAR FILTR. RATE CALC 35.0 mL/min (>60); GLUCOSE,RANDOM 176.0 mg/dL (70-110); SODIUM SERUM 140.0 mmol/L (136-145); TOTAL PROTEIN, SERUM 6.4 g/dL (6.4-8.2); UREA NITROGEN, BLOOD 57.0 mg/dL (7-18)
[2025-03-19] MEDS: BUDESONIDE 0.5 MG/2 ML NEB SOLUTION NEB SCH (07:42)
[2025-03-19] MEDS: MetroNIDAZOLE 500 MG/NACL 100 ML IV SCH (10:06)
[2025-03-19] MEDS: DEXTROSE 5%-WATER 1,000 ML IV SCH (13:32)
[2025-03-19 13:41] LABS: GLUCOMETER DEV NAME(LOC) ICUN.6; GLUCOSE,POINT OF CARE 132 MG/DL (70-110)
[2025-03-19 17:17] LABS: CALCIUM, TOTAL 7.8 mg/dL (8.8-10.5); CREATININE 1.79 mg/dL (0.60-1.30); GLOMERULAR FILTR. RATE CALC 39.0 mL/min (>60); GLUCOSE,RANDOM 162.0 mg/dL (70-110); SODIUM SERUM 138.0 mmol/L (136-145); UREA NITROGEN, BLOOD 49.0 mg/dL (7-18)
[2025-03-19 18:20] LABS: GLUCOMETER DEV NAME(LOC) ICUN.6; GLUCOSE,POINT OF CARE 148 MG/DL (70-110)
[2025-03-19] MEDS: POTASSIUM CHL 10 MEQ/WATER 50 ML IV ONE (19:41)
[2025-03-20] VITALS (32 sets, daily range): BP systolic 114–139; BP diastolic 57–91; PULSE 82–107; RESP 30; TEMP 98.7–99.1; O2SAT 90–97
[2025-03-20 05:19] LABS: PLATELET COUNT (AUTO) 324 K/uL (150-450); RED BLOOD CELL COUNT(AUTO) 3.87 MIL/uL (4.50-5.90); RED CELL DISTRIBUTION WIDTH 14.4 % (11.5-14.5); WHITE BLOOD COUNT (AUTO) 13.1 K/uL (4.5-11.0)
[2025-03-20 05:43] LABS: ASPARTATE AMINOTRANSFERASE 23.0 U/L (15-37); CALCIUM, TOTAL 7.6 mg/dL (8.8-10.5); CREATININE 1.71 mg/dL (0.60-1.30); GLOMERULAR FILTR. RATE CALC 41.0 mL/min (>60); GLUCOSE,RANDOM 153.0 mg/dL (70-110); PHOSPHORUS 3.8 mg/dL (2.5-4.9); SODIUM SERUM 139.0 mmol/L (136-145); TOTAL PROTEIN, SERUM 5.3 g/dL (6.4-8.2); UREA NITROGEN, BLOOD 46.0 mg/dL (7-18)
[2025-03-20 06:26] LABS: GLUCOMETER DEV NAME(LOC) ICUN.6; GLUCOSE,POINT OF CARE 158 MG/DL (70-110)
[2025-03-20 11:40] LABS: GLUCOMETER DEV NAME(LOC) ICU.S7; GLUCOSE,POINT OF CARE 99 MG/DL (70-110)
[2025-03-20 12:08] LABS: ABG A-A DIFF O2 485.5 mmHg (10-20.0); ABG BASE EXCESS -3.3 mmol/L (-2.0-3.0); ABG CARBOXYHEMOGLOBIN 0.1 % (0.5-1.5); ABG HCO3 22.1 mmol/L (21.0-28.0); ABG METHEMOGLOBIN 0.3 % (0.0-1.5); ABG OXYGEN CONTENT 15.4 mL/dL (15.0-23.0); ABG OXYGEN SATURATION 94.5 % (94.0-98.0); ABG OXYHEMOGLOBIN 94.1 % (94.0-98.0); ABG PCO2 36 mmHg (32.0-48.0); ABG PH 7.398 (7.350-7.450); ABG TOTAL HEMOGLOBIN 11.6 G/dL (13.5-17.5); FRACTIONATED INSPIRED OXYGEN 80.0 % (21-100.0); O2 DEVICE,BLOOD GAS VENTILATOR (ROOM AIR); PEEP,BG 10 cm H2O; PO2, ARTERIAL BG 74.0 mmHg (83.0-108.0); SET RATE, BG 30.0 min.; SITE, BLOOD GAS ARTERIAL LINE; SOURCE, BLOOD GAS ARTERIAL; TEMPERATURE, FAHRENHEIT, BG 98.9 FAHREN (96.0-98.6); VT, ABG 480 ml
[2025-03-20 13:56] LABS: GLUCOMETER DEV NAME(LOC) ICUN.6; GLUCOSE,POINT OF CARE 135 MG/DL (70-110)
[2025-03-20] MEDS ORDERED: 0.9% SODIUM CHLORIDE 5 ML NEB SOLUTION NEB ONE (14:53)
[2025-03-20] MEDS ORDERED: SODIUM CHLORIDE 0.9% 500 ML IV ONE ×2 (14:58→19:48)
[2025-03-20 18:25] LABS: GLUCOMETER DEV NAME(LOC) ICU.S7; GLUCOSE,POINT OF CARE 143 MG/DL (70-110)
[2025-03-21] VITALS (25 sets, daily range): BP systolic 103–170; BP diastolic 42–86; PULSE 77–127; RESP 24–30; TEMP 96.9–99.7; O2SAT 30–100
[2025-03-21 01:00] LABS: GLUCOMETER DEV NAME(LOC) ICU.S7; GLUCOSE,POINT OF CARE 102 MG/DL (70-110)
[2025-03-21 05:33] LABS: PLATELET COUNT (AUTO) 341 K/uL (150-450); RED BLOOD CELL COUNT(AUTO) 3.83 MIL/uL (4.50-5.90); RED CELL DISTRIBUTION WIDTH 14.3 % (11.5-14.5); WHITE BLOOD COUNT (AUTO) 13.9 K/uL (4.5-11.0)
[2025-03-21 05:44] LABS: ASPARTATE AMINOTRANSFERASE 24.0 U/L (15-37); CALCIUM, TOTAL 7.6 mg/dL (8.8-10.5); CREATININE 1.6 mg/dL (0.60-1.30); GLOMERULAR FILTR. RATE CALC 44.0 mL/min (>60); GLUCOSE,RANDOM 164.0 mg/dL (70-110); SODIUM SERUM 132.0 mmol/L (136-145); TOTAL PROTEIN, SERUM 5.6 g/dL (6.4-8.2); UREA NITROGEN, BLOOD 39.0 mg/dL (7-18)
[2025-03-21 06:23] LABS: PHOSPHORUS 3.7 mg/dL (2.5-4.9)
[2025-03-21] MEDS ORDERED: SODIUM CHLORIDE 0.9% 500 ML IV ONE (09:20)
[2025-03-21] MEDS: POTASSIUM CHL 10 MEQ/WATER 50 ML IV ONE (09:23)
[2025-03-21] MEDS: MAGNESIUM SULFATE 2 GM/WATER 50 ML IV ONE (10:10)
[2025-03-21 10:41] LABS: ABG BASE EXCESS -5.7 mmol/L (-2.0-3.0); ABG CARBOXYHEMOGLOBIN 0.3 % (0.5-1.5); ABG HCO3 20.0 mmol/L (21.0-28.0); ABG METHEMOGLOBIN 0.1 % (0.0-1.5); ABG OXYGEN CONTENT 16.5 mL/dL (15.0-23.0); ABG OXYGEN SATURATION 87.2 % (94.0-98.0); ABG OXYHEMOGLOBIN 86.9 % (94.0-98.0); ABG PCO2 39 mmHg (32.0-48.0); ABG PH 7.335 (7.350-7.450); ABG TOTAL HEMOGLOBIN 13.5 G/dL (13.5-17.5); FRACTIONATED INSPIRED OXYGEN 100.0 % (21-100.0); PO2, ARTERIAL BG 56.6 mmHg (83.0-108.0); SOURCE, BLOOD GAS ARTERIAL; TEMPERATURE, FAHRENHEIT, BG 98.6 FAHREN (96.0-98.6)
[2025-03-21 10:43] LABS: ABG A-A DIFF O2 617.7 mmHg (10-20.0); O2 DEVICE,BLOOD GAS VENTILATOR (ROOM AIR); PATIENT RATE, BG 30.0 min.; PEEP,BG 10 cm H2O; SET RATE, BG 30.0 min.; SITE, BLOOD GAS ARTERIAL LINE; VT, ABG 480 ml
[2025-03-21] MEDS: *CLINICAL-TOTAL PARENTERAL NUTRITION DOSING CLINICAL ONE (11:41)
[2025-03-21 12:50] LABS: GLUCOMETER DEV NAME(LOC) ICU.S7; GLUCOSE,POINT OF CARE 158 MG/DL (70-110)
[2025-03-21] MEDS: FUROSEMIDE 40 MG/4 ML VIAL IVP ONE (13:08)
[2025-03-21] MEDS: POTASSIUM CHL 10 MEQ/WATER 50 ML IV SCH (13:10)
[2025-03-21 16:45] LABS: GLUCOMETER DEV NAME(LOC) ICU.S7; GLUCOSE,POINT OF CARE 123 MG/DL (70-110)
[2025-03-21] MEDS: DEXTROSE 5%-WATER 1,000 ML IV SCH (22:00)
[2025-03-21] MEDS ORDERED: TPN SOLUTION 1 EA, SODIUM CHLORIDE 70 MEQ, SODIUM PHOS,M-BASIC-D-BASIC 30 MEQ, POTASSIU... IV SCH (22:00)
[2025-03-21] MEDS: [UNRECOGNIZED DRUG - OTHER] IV SCH (22:03)
[2025-03-21] MEDS: SODIUM CHLORIDE IV SCH (22:03)
[2025-03-21] MEDS: SODIUM PHOS M BASIC D BASIC IV SCH (22:03)
[2025-03-21] MEDS: TPN IV SCH (22:03)
[2025-03-22] VITALS (27 sets, daily range): BP systolic 102–164; BP diastolic 48–69; PULSE 71–109; RESP 30; TEMP 96.3–99.1; O2SAT 87–99
[2025-03-22 02:31] LABS: GLUCOMETER DEV NAME(LOC) ICUN.6; GLUCOSE,POINT OF CARE 116 MG/DL (70-110)
[2025-03-22 02:57] LABS: ABG BASE EXCESS -4.3 mmol/L (-2.0-3.0); ABG CARBOXYHEMOGLOBIN 0.1 % (0.5-1.5); ABG HCO3 21.2 mmol/L (21.0-28.0); ABG METHEMOGLOBIN 0.0 % (0.0-1.5); ABG OXYGEN CONTENT 16.1 mL/dL (15.0-23.0); ABG OXYGEN SATURATION 89.6 % (94.0-98.0); ABG OXYHEMOGLOBIN 89.5 % (94.0-98.0); ABG PCO2 37 mmHg (32.0-48.0); ABG PH 7.371 (7.350-7.450); ABG TOTAL HEMOGLOBIN 12.8 G/dL (13.5-17.5); FRACTIONATED INSPIRED OXYGEN 80.0 % (21-100.0); O2 DEVICE,BLOOD GAS VENTILATOR (ROOM AIR); PATIENT RATE, BG 30.0 min.; PEEP,BG 10 cm H2O; PO2, ARTERIAL BG 58.5 mmHg (83.0-108.0); SET RATE, BG 30.0 min.; SITE, BLOOD GAS ARTERIAL LINE; SOURCE, BLOOD GAS ARTERIAL; TEMPERATURE, FAHRENHEIT, BG 98.9 FAHREN (96.0-98.6); VT, ABG 480 ml
[2025-03-22 02:58] LABS: SPONTANEOUS VT, BG 510 ml
[2025-03-22 06:14] LABS: PLATELET COUNT (AUTO) 410 K/uL (150-450); RED BLOOD CELL COUNT(AUTO) 4.43 MIL/uL (4.50-5.90); RED CELL DISTRIBUTION WIDTH 14.7 % (11.5-14.5); WHITE BLOOD COUNT (AUTO) 20.9 K/uL (4.5-11.0)
[2025-03-22 06:31] LABS: CALCIUM, TOTAL 8.1 mg/dL (8.8-10.5); CREATININE 1.78 mg/dL (0.60-1.30); GLOMERULAR FILTR. RATE CALC 39.0 mL/min (>60); GLUCOSE,RANDOM 191.0 mg/dL (70-110); SODIUM SERUM 134.0 mmol/L (136-145); UREA NITROGEN, BLOOD 39.0 mg/dL (7-18)
[2025-03-22 06:45] LABS: GLUCOMETER DEV NAME(LOC) ICU.S7; GLUCOSE,POINT OF CARE 199 MG/DL (70-110)
[2025-03-22 06:49] LABS: PHOSPHORUS 4.4 mg/dL (2.5-4.9)
[2025-03-22] MEDS ORDERED: SODIUM CHLORIDE 0.9% 250 ML IV ONE (08:29)
[2025-03-22] MEDS: POTASSIUM CHL 10 MEQ/WATER 50 ML IV SCH ×2 (08:53→14:57)
[2025-03-22] MEDS ORDERED: DEXTROSE 50%-WATER 25 GM/50 ML SYRINGE IVP PRN (11:30)
[2025-03-22] MEDS: INSULIN REGULAR, HUMAN 100 UNITS/ML SQ PRN (11:57)
[2025-03-22 14:04] LABS: CALCIUM, TOTAL 7.6 mg/dL (8.8-10.5); CREATININE 1.63 mg/dL (0.60-1.30); GLOMERULAR FILTR. RATE CALC 44.0 mL/min (>60); GLUCOSE,RANDOM 178.0 mg/dL (70-110); SODIUM SERUM 136.0 mmol/L (136-145); UREA NITROGEN, BLOOD 38.0 mg/dL (7-18)
[2025-03-22 14:06] LABS: PHOSPHORUS 4.1 mg/dL (2.5-4.9)
[2025-03-22] MEDS: FUROSEMIDE 40 MG/4 ML VIAL IVP ONE (14:57)
[2025-03-22 18:26] LABS: GLUCOMETER DEV NAME(LOC) ICU.S7; GLUCOSE,POINT OF CARE 165 MG/DL (70-110)
[2025-03-22 18:26] LABS: GLUCOMETER DEV NAME(LOC) ICUN.6; GLUCOSE,POINT OF CARE 166 MG/DL (70-110)
[2025-03-22] MEDS: [UNRECOGNIZED DRUG - OTHER] IV SCH (21:58)
[2025-03-22] MEDS: POTASSIUM PHOS M BASIC D BASIC IV SCH (21:58)
[2025-03-22] MEDS: TPN IV SCH (21:58)
[2025-03-22] MEDS: SODIUM CHLORIDE IV SCH (21:58)
[2025-03-22 22:05] LABS: GLUCOMETER DEV NAME(LOC) ICU.S7; GLUCOSE,POINT OF CARE 177 MG/DL (70-110)
[2025-03-23] VITALS (23 sets, daily range): BP systolic 98–124; BP diastolic 59–78; PULSE 69–84; RESP 30; TEMP 97.2–98.7; O2SAT 90–96
[2025-03-23 05:56] LABS: PLATELET COUNT (AUTO) 407 K/uL (150-450); RED BLOOD CELL COUNT(AUTO) 4.04 MIL/uL (4.50-5.90); RED CELL DISTRIBUTION WIDTH 14.6 % (11.5-14.5); WHITE BLOOD COUNT (AUTO) 16.4 K/uL (4.5-11.0)
[2025-03-23 06:14] LABS: ASPARTATE AMINOTRANSFERASE 21.0 U/L (15-37); CALCIUM, TOTAL 7.5 mg/dL (8.8-10.5); CREATININE 1.46 mg/dL (0.60-1.30); GLOMERULAR FILTR. RATE CALC 49.0 mL/min (>60); GLUCOSE,RANDOM 186.0 mg/dL (70-110); PHOSPHORUS 3.2 mg/dL (2.5-4.9); SODIUM SERUM 137.0 mmol/L (136-145); TOTAL PROTEIN, SERUM 5.7 g/dL (6.4-8.2); UREA NITROGEN, BLOOD 37.0 mg/dL (7-18)
[2025-03-23 07:56] LABS: GLUCOMETER DEV NAME(LOC) ICUN.6; GLUCOSE,POINT OF CARE 152 MG/DL (70-110)
[2025-03-23 07:56] LABS: GLUCOMETER DEV NAME(LOC) ICUN.6; GLUCOSE,POINT OF CARE 141 MG/DL (70-110)
[2025-03-23 08:15] LABS: GLUCOMETER DEV NAME(LOC) ICU.S7; GLUCOSE,POINT OF CARE 152 MG/DL (70-110)
[2025-03-23] MEDS: POTASSIUM CHL 10 MEQ/WATER 50 ML IV SCH ×2 (08:33→12:43)
[2025-03-23 10:13] LABS: ABG A-A DIFF O2 413.8 mmHg (10-20.0); ABG BASE EXCESS -2.4 mmol/L (-2.0-3.0); ABG CARBOXYHEMOGLOBIN 0.3 % (0.5-1.5); ABG HCO3 22.9 mmol/L (21.0-28.0); ABG METHEMOGLOBIN 0.3 % (0.0-1.5); ABG OXYGEN CONTENT 14.2 mL/dL (15.0-23.0); ABG OXYGEN SATURATION 91.0 % (94.0-98.0); ABG OXYHEMOGLOBIN 90.5 % (94.0-98.0); ABG PCO2 31 mmHg (32.0-48.0); ABG PH 7.462 (7.350-7.450); ABG TOTAL HEMOGLOBIN 11.1 G/dL (13.5-17.5); FRACTIONATED INSPIRED OXYGEN 70.0 % (21-100.0); O2 DEVICE,BLOOD GAS VENTILATOR (ROOM AIR); PATIENT RATE, BG 30.0 min.; PEEP,BG 10 cm H2O; PO2, ARTERIAL BG 54.7 mmHg (83.0-108.0); SET RATE, BG 30.0 min.; SITE, BLOOD GAS ARTERIAL LINE; SOURCE, BLOOD GAS ARTERIAL; TEMPERATURE, FAHRENHEIT, BG 96.3 FAHREN (96.0-98.6); VT, ABG 480 ml
[2025-03-23 12:45] LABS: GLUCOMETER DEV NAME(LOC) ICU.S7; GLUCOSE,POINT OF CARE 158 MG/DL (70-110)
[2025-03-23 17:05] LABS: GLUCOMETER DEV NAME(LOC) ICUN.6; GLUCOSE,POINT OF CARE 174 MG/DL (70-110)
[2025-03-23] MEDS: TPN IV SCH (22:10)
[2025-03-23] MEDS: POTASSIUM PHOS M BASIC D BASIC IV SCH (22:10)
[2025-03-23] MEDS: [UNRECOGNIZED DRUG - OTHER] IV SCH (22:10)
[2025-03-23] MEDS: SODIUM CHLORIDE IV SCH (22:10)
[2025-03-24] VITALS (28 sets, daily range): BP systolic 107–148; BP diastolic 62–84; PULSE 70–92; RESP 30; TEMP 98.1–98.8; O2SAT 93–98
[2025-03-24 04:26] LABS: GLUCOMETER DEV NAME(LOC) ICU.S7; GLUCOSE,POINT OF CARE 131 MG/DL (70-110)
[2025-03-24] MEDS ORDERED: SODIUM CHLORIDE 0.9% 250 ML IV ONE (05:59)
[2025-03-24 06:01] LABS: PLATELET COUNT (AUTO) 556 K/uL (150-450); RED BLOOD CELL COUNT(AUTO) 4.42 MIL/uL (4.50-5.90); RED CELL DISTRIBUTION WIDTH 14.7 % (11.5-14.5); WHITE BLOOD COUNT (AUTO) 16.8 K/uL (4.5-11.0)
[2025-03-24 06:10] LABS: CALCIUM, TOTAL 8.4 mg/dL (8.8-10.5); CREATININE 1.39 mg/dL (0.60-1.30); GLOMERULAR FILTR. RATE CALC 52.0 mL/min (>60); GLUCOSE,RANDOM 150.0 mg/dL (70-110); SODIUM SERUM 139.0 mmol/L (136-145); UREA NITROGEN, BLOOD 39.0 mg/dL (7-18)
[2025-03-24 06:17] LABS: PHOSPHORUS 3.3 mg/dL (2.5-4.9)
[2025-03-24 07:35] LABS: GLUCOMETER DEV NAME(LOC) ICUN.6; GLUCOSE,POINT OF CARE 127 MG/DL (70-110)
[2025-03-24 07:35] LABS: GLUCOMETER DEV NAME(LOC) ICUN.6; GLUCOSE,POINT OF CARE 148 MG/DL (70-110)
[2025-03-24 08:34] LABS: BAND NEUTROPHILS % (MANUAL) 3 % (0-5); LYMPHOCYTES % (MANUAL) 23 % (22-44); METAMYELOCYTES % 2 % (0-0); MONOCYTES % (MANUAL) 5 % (2-9); RBC MORPHOLOGY COMMENT NORMAL RBC MORPH; SEGMENTED NEUTROPHILS % 67 % (40-70)
[2025-03-24] MEDS: POTASSIUM CHL 10 MEQ/WATER 50 ML IV SCH (08:50)
[2025-03-24] MEDS: FUROSEMIDE 40 MG/4 ML VIAL IVP SCH (08:52)
[2025-03-24 08:56] LABS: GLUCOMETER DEV NAME(LOC) ICUN.6; GLUCOSE,POINT OF CARE 132 MG/DL (70-110)
[2025-03-24] MEDS ORDERED: SODIUM CHLORIDE 0.9% 500 ML IV ONE (09:05)
[2025-03-24] MEDS: ALBUMIN HUMAN 25%-25GM/100ML 100 ML IV SCH (09:44)
[2025-03-24 10:03] LABS: ABG BASE EXCESS -3.4 mmol/L (-2.0-3.0); ABG CARBOXYHEMOGLOBIN 0.3 % (0.5-1.5); ABG HCO3 22.3 mmol/L (21.0-28.0); ABG METHEMOGLOBIN 0.3 % (0.0-1.5); ABG OXYGEN CONTENT 16.0 mL/dL (15.0-23.0); ABG OXYGEN SATURATION 93.5 % (94.0-98.0); ABG OXYHEMOGLOBIN 92.9 % (94.0-98.0); ABG PCO2 31 mmHg (32.0-48.0); ABG PH 7.440 (7.350-7.450); ABG TOTAL HEMOGLOBIN 12.2 G/dL (13.5-17.5); FRACTIONATED INSPIRED OXYGEN 60.0 % (21-100.0); PO2, ARTERIAL BG 67.8 mmHg (83.0-108.0); SOURCE, BLOOD GAS ARTERIAL; TEMPERATURE, FAHRENHEIT, BG 98.6 FAHREN (96.0-98.6)
[2025-03-24 10:04] LABS: ABG A-A DIFF O2 325.7 mmHg (10-20.0); O2 DEVICE,BLOOD GAS VENTILATOR (ROOM AIR); SITE, BLOOD GAS ARTERIAL LINE
[2025-03-24 10:05] LABS: PATIENT RATE, BG 30.0 min.; PEEP,BG 10 cm H2O; SET RATE, BG 30.0 min.; SPONTANEOUS VT, BG 503 ml; VT, ABG 480 ml
[2025-03-24 12:46] LABS: GLUCOMETER DEV NAME(LOC) ICUN.6; GLUCOSE,POINT OF CARE 137 MG/DL (70-110)
[2025-03-24 18:11] LABS: GLUCOMETER DEV NAME(LOC) ICUN.6; GLUCOSE,POINT OF CARE 125 MG/DL (70-110)
[2025-03-24 20:20] LABS: CALCIUM, TOTAL 8.3 mg/dL (8.8-10.5); CREATININE 1.35 mg/dL (0.60-1.30); GLOMERULAR FILTR. RATE CALC 54.0 mL/min (>60); GLUCOSE,RANDOM 141.0 mg/dL (70-110); SODIUM SERUM 142.0 mmol/L (136-145); UREA NITROGEN, BLOOD 39.0 mg/dL (7-18)
[2025-03-24 20:25] LABS: PHOSPHORUS 3.2 mg/dL (2.5-4.9)
[2025-03-25] VITALS (22 sets, daily range): BP systolic 102–161; BP diastolic 51–82; PULSE 76–107; RESP 30–36; TEMP 97.9–98.9; O2SAT 92–98
[2025-03-25 05:54] LABS: PLATELET COUNT (AUTO) 551 K/uL (150-450); RED BLOOD CELL COUNT(AUTO) 4.08 MIL/uL (4.50-5.90); RED CELL DISTRIBUTION WIDTH 14.9 % (11.5-14.5); WHITE BLOOD COUNT (AUTO) 15.9 K/uL (4.5-11.0)
[2025-03-25 06:11] LABS: ASPARTATE AMINOTRANSFERASE 21.0 U/L (15-37); CALCIUM, TOTAL 8.5 mg/dL (8.8-10.5); CREATININE 1.4 mg/dL (0.60-1.30); GLOMERULAR FILTR. RATE CALC 52.0 mL/min (>60); GLUCOSE,RANDOM 124.0 mg/dL (70-110); PHOSPHORUS 3.0 mg/dL (2.5-4.9); SODIUM SERUM 146.0 mmol/L (136-145); TOTAL PROTEIN, SERUM 6.7 g/dL (6.4-8.2); UREA NITROGEN, BLOOD 38.0 mg/dL (7-18)
[2025-03-25 06:20] LABS: GLUCOMETER DEV NAME(LOC) ICU.S7; GLUCOSE,POINT OF CARE 122 MG/DL (70-110)
[2025-03-25 06:37] LABS: RBC MORPHOLOGY COMMENT NORMAL RBC MORPH
[2025-03-25 06:39] LABS: BAND NEUTROPHILS % (MANUAL) 3 % (0-5); LYMPHOCYTES % (MANUAL) 19 % (22-44); METAMYELOCYTES % 1 % (0-0); MONOCYTES % (MANUAL) 7 % (2-9); SEGMENTED NEUTROPHILS % 70 % (40-70)
[2025-03-25] MEDS ORDERED: SODIUM CHLORIDE 0.9% 500 ML IV ONE (09:15)
[2025-03-25 10:26] LABS: GLUCOMETER DEV NAME(LOC) ICUN.6; GLUCOSE,POINT OF CARE 118 MG/DL (70-110)
[2025-03-25 10:26] LABS: GLUCOMETER DEV NAME(LOC) ICUN.6; GLUCOSE,POINT OF CARE 142 MG/DL (70-110)
[2025-03-25] MEDS ORDERED: POTASSIUM ACETATE IV SCH (13:45)
[2025-03-25] MEDS ORDERED: [UNRECOGNIZED DRUG - OTHER] IV SCH (13:45)
[2025-03-25] MEDS ORDERED: TPN IV SCH ×2 (13:45→22:00)
[2025-03-25] MEDS ORDERED: POTASSIUM PHOS M BASIC D BASIC IV SCH ×2 (13:45→22:00)
[2025-03-25 14:06] LABS: GLUCOMETER DEV NAME(LOC) ICU.S7; GLUCOSE,POINT OF CARE 125 MG/DL (70-110)
[2025-03-25 17:46] LABS: GLUCOMETER DEV NAME(LOC) ICU.S7; GLUCOSE,POINT OF CARE 135 MG/DL (70-110)
[2025-03-25 21:41] LABS: GLUCOMETER DEV NAME(LOC) ICUN.6; GLUCOSE,POINT OF CARE 116 MG/DL (70-110)
[2025-03-25] MEDS ORDERED: [UNRECOGNIZED DRUG - OTHER] IV SCH (22:00)
[2025-03-25] MEDS ORDERED: SODIUM CHLORIDE IV SCH (22:00)
[2025-03-25] MEDS: TPN IV SCH (22:02)
[2025-03-25] MEDS: POTASSIUM ACETATE IV SCH (22:02)
[2025-03-25] MEDS: POTASSIUM PHOS M BASIC D BASIC IV SCH (22:02)
[2025-03-25] MEDS: [UNRECOGNIZED DRUG - OTHER] IV SCH (22:02)
[2025-03-26] VITALS (22 sets, daily range): BP systolic 151–178; BP diastolic 67–79; PULSE 62–89; RESP 30–34; TEMP 95.8–99.7; O2SAT 88–96
[2025-03-26] MEDS: LORazepam 2 MG/ML VIAL IVP PRN (02:14)
[2025-03-26] MEDS: DEXMEDETOMIDINE 400 MCG/NS 100 ML IV PRN (05:31)
[2025-03-26 05:51] LABS: GLUCOMETER DEV NAME(LOC) ICUN.6; GLUCOSE,POINT OF CARE 115 MG/DL (70-110)
[2025-03-26 05:59] LABS: PLATELET COUNT (AUTO) 547 K/uL (150-450); RED BLOOD CELL COUNT(AUTO) 3.89 MIL/uL (4.50-5.90); RED CELL DISTRIBUTION WIDTH 15.2 % (11.5-14.5); WHITE BLOOD COUNT (AUTO) 15.8 K/uL (4.5-11.0)
[2025-03-26 06:12] LABS: CALCIUM, TOTAL 8.9 mg/dL (8.8-10.5); CREATININE 1.49 mg/dL (0.60-1.30); GLOMERULAR FILTR. RATE CALC 48.0 mL/min (>60); GLUCOSE,RANDOM 160.0 mg/dL (70-110); SODIUM SERUM 147.0 mmol/L (136-145); UREA NITROGEN, BLOOD 37.0 mg/dL (7-18)
[2025-03-26 06:22] LABS: PHOSPHORUS 4.0 mg/dL (2.5-4.9)
[2025-03-26 06:25] LABS: GLUCOMETER DEV NAME(LOC) ICU.S7; GLUCOSE,POINT OF CARE 185 MG/DL (70-110)
[2025-03-26] MEDS ORDERED: 0.9% SODIUM CHLORIDE 5 ML NEB SOLUTION NEB ONE ×5 (06:44→16:11)
[2025-03-26 07:20] LABS: GLUCOMETER DEV NAME(LOC) ICUN.6; GLUCOSE,POINT OF CARE 146 MG/DL (70-110)
[2025-03-26] MEDS: POTASSIUM CHL 10 MEQ/WATER 50 ML IV SCH ×2 (11:43→22:13)
[2025-03-26 12:41] LABS: GLUCOMETER DEV NAME(LOC) ICUN.6; GLUCOSE,POINT OF CARE 155 MG/DL (70-110)
[2025-03-26 17:39] LABS: CALCIUM, TOTAL 8.8 mg/dL (8.8-10.5); CREATININE 1.38 mg/dL (0.60-1.30); GLOMERULAR FILTR. RATE CALC 53.0 mL/min (>60); GLUCOSE,RANDOM 186.0 mg/dL (70-110); SODIUM SERUM 147.0 mmol/L (136-145); UREA NITROGEN, BLOOD 39.0 mg/dL (7-18)
[2025-03-26] MEDS: POTASSIUM CHL 10 MEQ/WATER 50 ML IV ONE (18:39)
[2025-03-26 18:55] LABS: PHOSPHORUS 3.9 mg/dL (2.5-4.9)
[2025-03-26 18:56] LABS: GLUCOMETER DEV NAME(LOC) ICU.S7; GLUCOSE,POINT OF CARE 176 MG/DL (70-110)
[2025-03-26] MEDS: [UNRECOGNIZED DRUG - OTHER] IV SCH (21:33)
[2025-03-26] MEDS: POTASSIUM PHOS M BASIC D BASIC IV SCH (21:33)
[2025-03-26] MEDS: TPN IV SCH (21:33)
[2025-03-26] MEDS: POTASSIUM ACETATE IV SCH (21:33)
[2025-03-26 22:15] LABS: GLUCOMETER DEV NAME(LOC) ICU.S7; GLUCOSE,POINT OF CARE 138 MG/DL (70-110)
[2025-03-27] VITALS (25 sets, daily range): BP systolic 120–154; BP diastolic 51–65; PULSE 52–84; RESP 23–30; TEMP 94.3–98.3; O2SAT 87–100
[2025-03-27 00:07] LABS: GLUCOMETER DEV NAME(LOC) ICU.S7; GLUCOSE,POINT OF CARE 139 MG/DL (70-110)
[2025-03-27 04:10] LABS: GLUCOMETER DEV NAME(LOC) ICUN.6; GLUCOSE,POINT OF CARE 155 MG/DL (70-110)
[2025-03-27 05:38] LABS: PLATELET COUNT (AUTO) 523 K/uL (150-450); RED BLOOD CELL COUNT(AUTO) 4.12 MIL/uL (4.50-5.90); RED CELL DISTRIBUTION WIDTH 15.4 % (11.5-14.5); WHITE BLOOD COUNT (AUTO) 10.8 K/uL (4.5-11.0)
[2025-03-27 05:53] LABS: ASPARTATE AMINOTRANSFERASE 17.0 U/L (15-37); CALCIUM, TOTAL 8.9 mg/dL (8.8-10.5); CREATININE 1.32 mg/dL (0.60-1.30); GLOMERULAR FILTR. RATE CALC 56.0 mL/min (>60); GLUCOSE,RANDOM 185.0 mg/dL (70-110); SODIUM SERUM 144.0 mmol/L (136-145); TOTAL PROTEIN, SERUM 7.0 g/dL (6.4-8.2); UREA NITROGEN, BLOOD 43.0 mg/dL (7-18)
[2025-03-27] MEDS ORDERED: 0.9% SODIUM CHLORIDE 5 ML NEB SOLUTION NEB ONE ×3 (07:53→14:17)
[2025-03-27 08:50] LABS: PHOSPHORUS 4.3 mg/dL (2.5-4.9)
[2025-03-27 09:35] LABS: ABG BASE EXCESS 3.7 mmol/L (-2.0-3.0); ABG CARBOXYHEMOGLOBIN 0.3 % (0.5-1.5); ABG HCO3 27.7 mmol/L (21.0-28.0); ABG METHEMOGLOBIN 0.3 % (0.0-1.5); ABG OXYGEN CONTENT 14.1 mL/dL (15.0-23.0); ABG OXYGEN SATURATION 87.4 % (94.0-98.0); ABG OXYHEMOGLOBIN 86.9 % (94.0-98.0); ABG PCO2 32 mmHg (32.0-48.0); ABG PH 7.534 (7.350-7.450); ABG TOTAL HEMOGLOBIN 11.5 G/dL (13.5-17.5); FRACTIONATED INSPIRED OXYGEN 55.0 % (21-100.0); PO2, ARTERIAL BG 46.4 mmHg (83.0-108.0); SOURCE, BLOOD GAS ARTERIAL; TEMPERATURE, FAHRENHEIT, BG 96.0 FAHREN (96.0-98.6)
[2025-03-27 09:36] LABS: ABG A-A DIFF O2 312.1 mmHg (10-20.0); O2 DEVICE,BLOOD GAS VENTILATOR (ROOM AIR); SET RATE, BG 30.0 min.; SITE, BLOOD GAS ARTERIAL LINE; VT, ABG 480 ml
[2025-03-27 09:37] LABS: PEEP,BG 8 cm H2O
[2025-03-27 11:07] LABS: ABG BASE EXCESS 2.3 mmol/L (-2.0-3.0); ABG CARBOXYHEMOGLOBIN 0.3 % (0.5-1.5); ABG HCO3 26.7 mmol/L (21.0-28.0); ABG METHEMOGLOBIN 0.3 % (0.0-1.5); ABG OXYGEN CONTENT 14.5 mL/dL (15.0-23.0); ABG OXYGEN SATURATION 90.2 % (94.0-98.0); ABG OXYHEMOGLOBIN 89.7 % (94.0-98.0); ABG PCO2 32 mmHg (32.0-48.0); ABG PH 7.513 (7.350-7.450); ABG TOTAL HEMOGLOBIN 11.5 G/dL (13.5-17.5); FRACTIONATED INSPIRED OXYGEN 60.0 % (21-100.0); SOURCE, BLOOD GAS ARTERIAL; TEMPERATURE, FAHRENHEIT, BG 98.4 FAHREN (96.0-98.6)
[2025-03-27 11:09] LABS: PO2, ARTERIAL BG 52.4 mmHg (83.0-108.0); SITE, BLOOD GAS ARTERIAL LINE
[2025-03-27 11:10] LABS: ABG A-A DIFF O2 340.2 mmHg (10-20.0); O2 DEVICE,BLOOD GAS VENTILATOR (ROOM AIR); PEEP,BG 10 cm H2O; SET RATE, BG 30.0 min.; VT, ABG 480 ml
[2025-03-27] MEDS: PROPOFOL 1000 MG/ISO-OSM 100 ML IV PRN (16:56)
[2025-03-27 17:20] LABS: GLUCOMETER DEV NAME(LOC) ICUN.6; GLUCOSE,POINT OF CARE 106 MG/DL (70-110)
[2025-03-27 20:25] LABS: GLUCOMETER DEV NAME(LOC) ICU.S7; GLUCOSE,POINT OF CARE 149 MG/DL (70-110)
[2025-03-27 21:35] LABS: GLUCOMETER DEV NAME(LOC) ICU.S7; GLUCOSE,POINT OF CARE 137 MG/DL (70-110)
[2025-03-27] MEDS: FentaNYL CIT 1000MCG/0.9% NACL 100 ML IV PRN (21:44)
[2025-03-28] VITALS (24 sets, daily range): BP systolic 103–156; BP diastolic 51–88; PULSE 67–100; RESP 16–27; TEMP 98.1–100.9; O2SAT 93–100
[2025-03-28] MEDS ORDERED: SODIUM CHLORIDE 0.9% 250 ML IV ONE ×3 (03:30→08:16)
[2025-03-28 04:21] LABS: GLUCOMETER DEV NAME(LOC) ICUN.6; GLUCOSE,POINT OF CARE 141 MG/DL (70-110)
[2025-03-28 06:05] LABS: GLUCOMETER DEV NAME(LOC) ICU.S7; GLUCOSE,POINT OF CARE 126 MG/DL (70-110)
[2025-03-28 07:12] LABS: PLATELET COUNT (AUTO) 572 K/uL (150-450); RED BLOOD CELL COUNT(AUTO) 4.09 MIL/uL (4.50-5.90); RED CELL DISTRIBUTION WIDTH 15.2 % (11.5-14.5); WHITE BLOOD COUNT (AUTO) 14.9 K/uL (4.5-11.0)
[2025-03-28 07:16] LABS: CALCIUM, TOTAL 8.7 mg/dL (8.8-10.5); CREATININE 1.54 mg/dL (0.60-1.30); GLOMERULAR FILTR. RATE CALC 46.0 mL/min (>60); GLUCOSE,RANDOM 125.0 mg/dL (70-110); SODIUM SERUM 148.0 mmol/L (136-145); UREA NITROGEN, BLOOD 43.0 mg/dL (7-18)
[2025-03-28 07:30] LABS: PHOSPHORUS 5.0 mg/dL (2.5-4.9)
[2025-03-28 09:06] LABS: ABG BASE EXCESS 2.9 mmol/L (-2.0-3.0); ABG CARBOXYHEMOGLOBIN 0.3 % (0.5-1.5); ABG HCO3 27.2 mmol/L (21.0-28.0); ABG METHEMOGLOBIN 0.3 % (0.0-1.5); ABG OXYGEN CONTENT 17.5 mL/dL (15.0-23.0); ABG OXYGEN SATURATION 97.7 % (94.0-98.0); ABG OXYHEMOGLOBIN 97.1 % (94.0-98.0); ABG PCO2 35 mmHg (32.0-48.0); ABG PH 7.491 (7.350-7.450); ABG TOTAL HEMOGLOBIN 12.7 G/dL (13.5-17.5); FRACTIONATED INSPIRED OXYGEN 60.0 % (21-100.0); PO2, ARTERIAL BG 104.0 mmHg (83.0-108.0); SOURCE, BLOOD GAS ARTERIAL; TEMPERATURE, FAHRENHEIT, BG 98.0 FAHREN (96.0-98.6)
[2025-03-28 09:07] LABS: SITE, BLOOD GAS ARTERIAL LINE
[2025-03-28 09:08] LABS: ABG A-A DIFF O2 285.5 mmHg (10-20.0); O2 DEVICE,BLOOD GAS VENTILATOR (ROOM AIR)
[2025-03-28 09:09] LABS: PEEP,BG 10 cm H2O; SET RATE, BG 24.0 min.; SPONTANEOUS VT, BG 494 ml; VT, ABG 480 ml
[2025-03-28 09:10] LABS: GLUCOMETER DEV NAME(LOC) ICUN.6; GLUCOSE,POINT OF CARE 127 MG/DL (70-110)
[2025-03-28 12:06] LABS: GLUCOMETER DEV NAME(LOC) ICU.S7; GLUCOSE,POINT OF CARE 130 MG/DL (70-110)
[2025-03-28 13:48] LABS: APPEARANCE,URINE TURBID (CLEAR); GLUCOSE, URINE (UA) NEGATIVE (NEGATIVE); LEUKOCYTE ESTERASE ,URINE LARGE (NEGATIVE); NITRATE,URINE NEGATIVE (NEGATIVE); OCCULT BLOOD,URINE SMALL (NEGATIVE); SPECIFIC GRAVITIY, URINE 1.020 (1.003-1.030)
[2025-03-28 14:07] LABS: SQUAMOUS EPITHELIAL CELL,UR Few /LPF (None Seen)
[2025-03-28 14:08] LABS: YEAST,URINE Many /HPF (None Seen)
[2025-03-28 17:21] LABS: GLUCOMETER DEV NAME(LOC) ICU.S7; GLUCOSE,POINT OF CARE 108 MG/DL (70-110)
[2025-03-28 20:35] LABS: GLUCOMETER DEV NAME(LOC) ICU.S7; GLUCOSE,POINT OF CARE 125 MG/DL (70-110)
[2025-03-28 22:09] LABS: C.DIFF GDH ANTIGEN, Stool Negative (Negative); C.DIFF TOXINS A&B, Stool Negative (Negative)
[2025-03-28] MEDS: [UNRECOGNIZED DRUG - OTHER] IV SCH (22:58)
[2025-03-28] MEDS: TPN IV SCH (22:58)
[2025-03-28] MEDS: POTASSIUM ACETATE IV SCH (22:58)
[2025-03-28] MEDS: CALCIUM GLUCONATE IV SCH (22:58)
[2025-03-29] VITALS (23 sets, daily range): BP systolic 95–168; BP diastolic 55–91; PULSE 77–130; RESP 18–34; TEMP 101–103.1; O2SAT 92–100
[2025-03-29] MEDS: HYDROCORTISONE SOD SUCC 100 MG/2 ML VIAL IVP SCH (00:47)
[2025-03-29 01:26] LABS: GLUCOMETER DEV NAME(LOC) ICUN.6; GLUCOSE,POINT OF CARE 102 MG/DL (70-110)
[2025-03-29 04:56] LABS: GLUCOMETER DEV NAME(LOC) ICUN.6; GLUCOSE,POINT OF CARE 129 MG/DL (70-110)
[2025-03-29 05:44] LABS: PLATELET COUNT (AUTO) 551 K/uL (150-450); RED BLOOD CELL COUNT(AUTO) 4.11 MIL/uL (4.50-5.90); RED CELL DISTRIBUTION WIDTH 15.4 % (11.5-14.5); WHITE BLOOD COUNT (AUTO) 11.5 K/uL (4.5-11.0)
[2025-03-29 06:01] LABS: ASPARTATE AMINOTRANSFERASE 23.0 U/L (15-37); CALCIUM, TOTAL 8.4 mg/dL (8.8-10.5); CREATININE 1.48 mg/dL (0.60-1.30); GLOMERULAR FILTR. RATE CALC 49.0 mL/min (>60); GLUCOSE,RANDOM 148.0 mg/dL (70-110); PHOSPHORUS 3.2 mg/dL (2.5-4.9); SODIUM SERUM 146.0 mmol/L (136-145); TOTAL PROTEIN, SERUM 6.7 g/dL (6.4-8.2); UREA NITROGEN, BLOOD 42.0 mg/dL (7-18)
[2025-03-29] MEDS: DOCUSATE SODIUM 100 MG/10 ML LIQUID UDCUP NG SCH (09:26)
[2025-03-29] MEDS ORDERED: SODIUM CHLORIDE 0.9% 500 ML IV ONE (10:21)
[2025-03-29] MEDS: LEVOFLOXACIN 750 MG/D5% WATER 150 ML IV SCH (11:03)
[2025-03-29] MEDS: *CLINICAL-LEVOFLOXACIN IVPB DOSING CLINICAL ONE (11:04)
[2025-03-29] MEDS: FUROSEMIDE 20 MG/2 ML VIAL IVP ONE (11:50)
[2025-03-29] MEDS: CASPOFUNGIN ACETATE 70 MG in SODIUM CHLORIDE 0.9% 250 ML IV ONE (12:30)
[2025-03-29 14:59] LABS: INFLUENZA A-RTPCR,COMBO NEGATIVE (NEGATIVE); INFLUENZA B-RTPCR,COMBO NEGATIVE (NEGATIVE); RESPIRATORY SYNCYTIAL VRS-PCR NEGATIVE (NEGATIVE); SARS COVID19 RTPCR, COMBO NEGATIVE (NEGATIVE)
[2025-03-29] MEDS: ALBUMIN HUMAN 25%-25GM/100ML 100 ML IV SCH (16:19)
[2025-03-29 16:41] LABS: GLUCOMETER DEV NAME(LOC) ICU.S7; GLUCOSE,POINT OF CARE 118 MG/DL (70-110)
[2025-03-29 19:45] LABS: GLUCOMETER DEV NAME(LOC) ICU.S7; GLUCOSE,POINT OF CARE 108 MG/DL (70-110)
[2025-03-29 20:50] LABS: GLUCOMETER DEV NAME(LOC) ICUN.6; GLUCOSE,POINT OF CARE 117 MG/DL (70-110)
[2025-03-29] MEDS ORDERED: TPN IV SCH (22:00)
[2025-03-29] MEDS ORDERED: [UNRECOGNIZED DRUG - OTHER] IV SCH (22:00)
[2025-03-29] MEDS ORDERED: POTASSIUM PHOS M BASIC D BASIC IV SCH (22:00)
[2025-03-29] MEDS ORDERED: POTASSIUM ACETATE IV SCH (22:00)
[2025-03-29] MEDS: *CLINICAL-MEROPENEM DOSING CLINICAL ONE (22:06)
[2025-03-30] VITALS (26 sets, daily range): BP systolic 104–134; BP diastolic 59–78; PULSE 72–104; RESP 24–29; TEMP 98.7–100.6; O2SAT 88–98
[2025-03-30 01:21] LABS: GLUCOMETER DEV NAME(LOC) ICUN.6; GLUCOSE,POINT OF CARE 103 MG/DL (70-110)
[2025-03-30] MEDS: MEROPENEM 1 GM in SODIUM CHLORIDE 0.9% 50 ML IV SCH (02:54)
[2025-03-30 04:16] LABS: GLUCOMETER DEV NAME(LOC) ICU.S7; GLUCOSE,POINT OF CARE 108 MG/DL (70-110)
[2025-03-30 06:18] LABS: PLATELET COUNT (AUTO) 363 K/uL (150-450); RED BLOOD CELL COUNT(AUTO) 3.55 MIL/uL (4.50-5.90); RED CELL DISTRIBUTION WIDTH 16.1 % (11.5-14.5); WHITE BLOOD COUNT (AUTO) 11.6 K/uL (4.5-11.0)
[2025-03-30 06:23] LABS: CALCIUM, TOTAL 8.3 mg/dL (8.8-10.5); CREATININE 1.88 mg/dL (0.60-1.30); GLOMERULAR FILTR. RATE CALC 37.0 mL/min (>60); GLUCOSE,RANDOM 126.0 mg/dL (70-110); SODIUM SERUM 149.0 mmol/L (136-145); UREA NITROGEN, BLOOD 49.0 mg/dL (7-18)
[2025-03-30 06:29] LABS: PHOSPHORUS 3.9 mg/dL (2.5-4.9)
[2025-03-30] MEDS: POTASSIUM CHL 10 MEQ/WATER 50 ML IV SCH (09:46)
[2025-03-30 10:31] LABS: GLUCOMETER DEV NAME(LOC) ICUN.6; GLUCOSE,POINT OF CARE 114 MG/DL (70-110)
[2025-03-30 12:11] LABS: GLUCOMETER DEV NAME(LOC) ICUN.6; GLUCOSE,POINT OF CARE 133 MG/DL (70-110)
[2025-03-30] MEDS: CASPOFUNGIN ACETATE 50 MG in SODIUM CHLORIDE 0.9% 250 ML IV SCH (13:11)
[2025-03-30 18:20] LABS: GLUCOMETER DEV NAME(LOC) ICUN.6; GLUCOSE,POINT OF CARE 132 MG/DL (70-110)
[2025-03-30] MEDS: CefTRIAXone SODIUM 2 GM in DEXTROSE 5%-WATER 50 ML IV SCH (19:01)
[2025-03-30 21:11] LABS: GLUCOMETER DEV NAME(LOC) ICUN.6; GLUCOSE,POINT OF CARE 119 MG/DL (70-110)
[2025-03-30] MEDS ORDERED: GLUCAGON,HUMAN RECOMBINANT 1 MG VIAL IM PRN (21:45)
[2025-03-30] MEDS ORDERED: INSULIN LISPRO 100 UNITS/ML SQ PRN ×2 (21:45→22:00)
[2025-03-30] MEDS ORDERED: DEXTROSE 50%-WATER 25 GM/50 ML SYRINGE IVP PRN (22:00)
[2025-03-30] MEDS: DEXTROSE 5%-0.45% SODIUM CHL 1,000 ML IV SCH (22:50)
[2025-03-31] VITALS (15 sets, daily range): BP systolic 102–136; BP diastolic 63–83; PULSE 80–96; RESP 21–29; TEMP 98.9–100; O2SAT 93–96
[2025-03-31 01:10] LABS: GLUCOMETER DEV NAME(LOC) ICUN.6; GLUCOSE,POINT OF CARE 124 MG/DL (70-110)
[2025-03-31] MEDS ORDERED: SODIUM CHLORIDE 0.9% 250 ML IV ONE ×2 (03:08→12:52)
[2025-03-31 05:36] LABS: GLUCOMETER DEV NAME(LOC) ICUN.6; GLUCOSE,POINT OF CARE 120 MG/DL (70-110)
[2025-03-31 06:14] LABS: ASPARTATE AMINOTRANSFERASE 22.0 U/L (15-37); CALCIUM, TOTAL 8.7 mg/dL (8.8-10.5); CREATININE 1.59 mg/dL (0.60-1.30); GLOMERULAR FILTR. RATE CALC 45.0 mL/min (>60); GLUCOSE,RANDOM 132.0 mg/dL (70-110); SODIUM SERUM 151.0 mmol/L (136-145); TOTAL PROTEIN, SERUM 6.8 g/dL (6.4-8.2); UREA NITROGEN, BLOOD 45.0 mg/dL (7-18)
[2025-03-31] MEDS: POTASSIUM CHL 10 MEQ/WATER 50 ML IV SCH (09:14)
[2025-03-31] MEDS: DEXTROSE 5%-WATER 1,000 ML IV SCH (09:14)
[2025-03-31] MEDS: HYDROCORTISONE SOD SUCC 100 MG/2 ML VIAL IVP SCH (09:16)
[2025-03-31 16:05] LABS: GLUCOMETER DEV NAME(LOC) ICU.S7; GLUCOSE,POINT OF CARE 136 MG/DL (70-110)
== END 2025-03-31 16:05 | DRG 870 ==
LOC: EMS 10:24 → EDBD 10:24 → EDH 14:36 → ICU 21:20
PROVIDERS: ADMIT Internal Medicine; ATTEND Internal Medicine
PROC: 0BH17EZ Insertion of Endotracheal Airway into Trachea, Via Natural or Artificial Opening (ICD-10-PCS; principal; 2025-03-09)
PROC: 02HV33Z Insertion of Infusion Device into Superior Vena Cava, Percutaneous Approach (ICD-10-PCS; 2025-03-09)
PROC: 5A1955Z Respiratory Ventilation, Greater than 96 Consecutive Hours (ICD-10-PCS; 2025-03-09)
PROC: B548ZZA Ultrasonography of Superior Vena Cava, Guidance (ICD-10-PCS; 2025-03-09)
PROC: 04HY32Z Insertion of Monitoring Device into Lower Artery, Percutaneous Approach (ICD-10-PCS; 2025-03-09)
PROC: B54BZZA Ultrasonography of Right Lower Extremity Veins, Guidance (ICD-10-PCS; 2025-03-09)
PROC: 05HB33Z Insertion of Infusion Device into Right Basilic Vein, Percutaneous Approach (ICD-10-PCS; 2025-03-11)
PROC: B54MZZA Ultrasonography of Right Upper Extremity Veins, Guidance (ICD-10-PCS; 2025-03-11)
PROC: 0B9C8ZX Drainage of Right Upper Lung Lobe, Via Natural or Artificial Opening Endoscopic, Diagnostic (ICD-10-PCS; 2025-03-21)
DX: A41.9 Sepsis, unspecified organism (principal); J69.0 Pneumonitis due to inhalation of food and vomit; R65.21 Severe sepsis with septic shock; J80 Acute respiratory distress syndrome; J13 Pneumonia due to Streptococcus pneumoniae; E87.20 Acidosis, unspecified; E87.0 Hyperosmolality and hypernatremia; J98.11 Atelectasis; N13.8 Other obstructive and reflux uropathy; Z99.11 Dependence on respirator [ventilator] status; N17.9 Acute kidney failure, unspecified; Z20.822 Contact with and (suspected) exposure to COVID-19; E11.65 Type 2 diabetes mellitus with hyperglycemia; E66.01 Morbid (severe) obesity due to excess calories; R33.8 Other retention of urine; N47.1 Phimosis; N40.1 Benign prostatic hyperplasia with lower urinary tract symptoms; E11.22 Type 2 diabetes mellitus with diabetic chronic kidney disease; I12.9 Hypertensive chronic kidney disease with stage 1 through stage 4 chronic kidney disease, or unspecified chronic kidney disease; N18.9 Chronic kidney disease, unspecified; R13.10 Dysphagia, unspecified; G40.901 Epilepsy, unspecified, not intractable, with status epilepticus; E87.6 Hypokalemia; R19.7 Diarrhea, unspecified; Z68.37 Body mass index [BMI] 37.0-37.9, adult; Z86.15 Personal history of latent tuberculosis infection; Z79.4 Long term (current) use of insulin
CPT/HCPCS: 31500; 36245; 36569; 70450; 71045; 71250; 72192; 74150; 76937; 80048; 80053; 80074; 80076; 80185; 80307; 81001; 82805; 82962; 83605; 83735; 83880; 84100; 84132; 84134; 84145; 84478; 84484; 85025; 85379; 85610; 87015; 87040; 87070; 87081; 87086; 87101; 87106; 87186; 87205; 87206; 87220; 87324; 87389; 87449; 87556; 87637; 87899; 88108; 88305; 93005; 93306; 94002; 94003; 94640; 94667; 94668; 99291; G0238; G0480; J0360; J0456; J0610; J0637; J0696; J0712; J0878; J1644; J1720; J1938; J1956; J2020; J2060; J2185; J2250; J2370; J2470; J2543; J2704; J2765; J3010; J3411; J3475; J3480; J3490; J7030; J7040; J7050; J7060; J7131; P9046; 36415-L1; 36415-TC; J7613; X7700